=== PATIENT | male | born 1960 | race Caucasian/White ===

== ENCOUNTER 2019-08-02 20:25 | Inpatient (IN) | payer MEDICAID ==
[~2019-08-02] VITALS: Ht 180.3 cm; Wt 68.3 kg
--- NOTE | 2019-08-02 20:36 | NUR ---
PT BROUGHT TO ED FROM [facility] BY [facility] WITH INCREASED ALOC AND PAIN. PER MEDICS, PT IS USUALLY AOX3 AND IS IN THE CARE FACILITY DUE TO A R HIP FX. CARE FACILITY STAFF STATED THAT PT HAD A TEMP OF 100.4 AND WAS MORE ALTERED THAN USUAL AND SO THEY WANTED PT TRANSFERRED TO HOSPITAL. PT CURRENTLY AOX1, PT KNOWS NAME AND BUT DOES NOT KNOW HIS LOCATION, MONTH AND YEAR, OR US PRESIDENT. 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 PT AFEBRILE AT THIS TIME. PER MEDICS BLOOD GLUCOSE 100, VITALS STABLE. PT PLACED ON FULL CM IN VIEW OF NURSE'S STATION.
[2019-08-02 21:20] LABS: PLATELET COUNT 465 x10^3mcL (130-400); RED CELL DISTRIBUTION WIDTH 15.1 % (11.5-14.5)
[2019-08-02 21:29] LABS: CALCIUM 8.2 mg/dL (8.5-10.1); CARBON DIOXIDE 27.1 mmol/L (21-32); CHLORIDE SERUM 95 mmol/L (98-107); CREATININE SERUM 0.7 mg/dL (0.7-1.3); GFR1 > 60 mL/min; GLUCOSE SERUM 98 mg/dL (74-106); POTASSIUM SERUM 3.9 mmol/L (3.5-5.1); SODIUM SERUM 136 mmol/L (136-145)
[2019-08-02 21:34] LABS: ALKALINE PHOSPHATASE 269 U/L (46-116); ALT/SGPT 33 U/L (16-63); AST/SGOT 38 U/L (15-37); BAND NEUTROPHIL 4 % (0-10); BILIRUBIN TOTAL 0.55 mg/dL (0.20-1.00); METAMYELOCTE 3 % (0-2); MONOCYTE 4 % (0-7); SEGMENTED NEUTROPHILS 82 % (37-75); TOTAL PROTEIN, SERUM 6.4 g/dL (6.4-8.2)
[2019-08-02 21:35] LABS: ALBUMIN 1.7 g/dL (3.4-5.0)
[2019-08-02 21:36] LABS: PLATELET MORPHOLOGY FEW LARGE PLATELET; rbc morphology (normal/abnorm) ABNORMAL (NORMAL)
[2019-08-02] MEDS ORDERED: NORCO1 TA2 PO (23:50)
[2019-08-02 23:52] LABS: microscopic required? NO
[2019-08-02 23:58] LABS: urine erythrocyte NEGATIVE (NEGATIVE)
[2019-08-03 00:07] LABS: MAGNESIUM 1.9 mg/dL (1.8-2.4); PHOSPHOROUS 3.3 mg/dL (2.5-4.9)
[2019-08-03 00:09] LABS: CHOLESTEROL/HDL RATIO 2.9
--- NOTE | 2019-08-03 00:10 | NUR ---
RECEIVED PT FROM ED VIA [facility], CAME IN DUE TO INCREASED CONFUSION. PT ABLE TO STATE NAME, CONFUSED, ABLE TO FOLLOW SIMPLE COMMANDS, PUPILS ARE BRISK AND REACTIVE TO LIGHT. NO FACIAL DROOP NOTED. NO SOB, LUNG SOUNDS CTA, O2 SAT-96%, RA. DENIES CHEST PAIN/PRESSURE. DENIES ABDOMINAL DISCOMFORT. C/O 10/10 LOWER BACK AND HIP PAIN WORSE ON MOVEMENT. W/ RIGHT FOOT DRY SCABS, BILERAL HEELS DRY SKIN, AND SCABS W/ BLANCHABLE ERYTHEMA ON THE SACRAL-COCCYGEAL AREA AND LEFT BUTTOCK, MANAGER CODING. W/ KAZAKH 16 BAZAN CATHETER DRAINING W/ YELLOW COLORED URINE. IV SITE PATENT AND INTACT. SIDE RAILS UPX2. CALL LIGHT ON REACH. PRIMARY NURSE PEDRO AT BEDSIDE FOR CONTINUITY OF CARE
[2019-08-03 00:15] LABS: T3 TOTAL 0.92 ng/mL
[2019-08-03 00:17] LABS: FREE T4 1.63 ng/dL (0.76-1.46); FREE THYROXINE INDEX 4.1 ug/dL (1.4-4.5); T4(THYROXINE) 11.4 ug/dL (4.7-13.3)
[2019-08-03 00:27] LABS: AMPHETAMINE QUAL UR NONE DETECTED (See below)
[2019-08-03 00:30] VITALS: BP 112/70
[2019-08-03 00:46] VITALS: Ht 180.3 cm; Wt 68.3 kg
--- NOTE | 2019-08-03 02:00 | NUR ---
PT RESTING. NO SIGNS OF DISTRESS. BREATHING EVEN AND UNLABORED. IV PATENT, INFUSING WELL. CALL BUTTON WITHIN REACH. SAFETY PRECAUTIONS IN PLACE. WILL CONTINUE TO MONITOR.
[2019-08-03] MEDS ORDERED: VITAMIN C500 M6 PO (02:22)
[2019-08-03] MEDS ORDERED: NEU300 PO (02:23)
[2019-08-03] MEDS ORDERED: HYDRALAZINE HCL25 MG PO (02:24)
[2019-08-03] MEDS ORDERED: NITROGLYCERIN0.4 MG SL (02:25)
[2019-08-03] MEDS ORDERED: NOR10 PO (02:26)
[2019-08-03] MEDS ORDERED: COR6 PO (02:26)
[2019-08-03] MEDS ORDERED: ZINC SULFATE PO (02:27)
[2019-08-03] MEDS ORDERED: MULTI-VITAMINS1 TAB PO (02:28)
[2019-08-03 05:15] VITALS: BP 134/82
--- NOTE | 2019-08-03 06:08 | NUR ---
PT SLEPT ON AND OFF. NO SIGNS OF DISTRESS. IV PATENT, INFUSING WELL. DENIES ANY PAIN. BREATHING EVEN AND UNLABORED ON RA. NO SOB NOTED. PT F/C IN PLACE DRAINING YELLOW URINE. PT DID NOT HAVE A BM. TURN AND REPSOTIONED NEEDED. PT ABLE TO MOVE IN BED WITH MINIMAL ASSIST. PT CONTINUE TO BE CONFUSED AT TIMES. CALL BUTTON WITHIN REACH. SAFETY PRECAUTIONS IN PLACE. WILL CONTINUE TO MONITOR AND ENDORSECARE TO DAY SHIFT RN.
[2019-08-03 06:45] LABS: CALCIUM 8.3 mg/dL (8.5-10.1); CARBON DIOXIDE 25.5 mmol/L (21-32); CHLORIDE SERUM 104 mmol/L (98-107); CREATININE SERUM 0.6 mg/dL (0.7-1.3); GFR1 > 60 mL/min; GLUCOSE SERUM 97 mg/dL (74-106); POTASSIUM SERUM 3.9 mmol/L (3.5-5.1); SODIUM SERUM 139 mmol/L (136-145)
[2019-08-03 07:30] LABS: PLATELET COUNT 467 x10^3mcL (130-400); RED CELL DISTRIBUTION WIDTH 15.2 % (11.5-14.5)
--- NOTE | 2019-08-03 07:30 | NUR ---
PT IS AAOX2 TO PERSON AND PLACE. RESP EVEN, SHALLOW AND UNLABORED. LUNG SOUNDS DIMINISHED BILATERALLY. ON R/A. NO COUGH OR SOB NOTED. NORMAL S1S2 NOTED. ABODMEN SOFT, NONTENDER, NONDISTENDED. BOWEL SOUNDS ACTIVE X4 QUADS. DENIES N/V/D AND CONSTIPATION. PT HAS R FOOT SCABS SCATTERED AND ANNABELLE. NO S/S OF INFECTION NOTED. PT HAS SACRAL SCAR BUT NO REDNESS OR EXCORIATION NOTED TO AREA. PT PULLED IV CATH OUT INTACT. COVERED SITE WITH GAUZE AND BANDAID. NO S/S OF INFECTION OR INFILTRATION TO AREA NOTED. NEW IV CATH 2 GAUGE STARTED TO LFA, AREA COVERERED WITH CDI OCCLUSIVE DRESSING, IVF INITIATED. PT DENIES PAIN AT THIS TIME. CALL LIGHT WITHIN REACH. BED IN LOWEST POSITION. BED ALARM ON. FALL PROTOCOL MAINTAINED.
--- NOTE | 2019-08-03 07:32 | NUR ---
PT IN NO SIGNS OF DISTRESS. ENDORSED CARE TO DAY SHIFT RN, ALL QUESTIONS ADDRESSED.
--- NOTE | 2019-08-03 07:42 | NUR ---
LAB REPORTED PT'S WBC= 20.4, PT'S TEMP =102.[address] ANDERSON AWAITING CALL BACK. COOLING MEASURES IMPLEMENTED. PT HAS PULLED IV CATH. SITE WNL. COVERED WITH CDI DRESSING. WILL ATTEMPT NEW IV START AT THIS TIME. CALL LIGHT WITHIN REACH.
[2019-08-03 07:45] VITALS: BP 108/48
--- NOTE | 2019-08-03 08:37 | NUR ---
TYLENOL 650MG PO GIVEN CRUSHED WITH APPLES SAUCE FOR TEMP OF 102.6. COOLING MEASURES IN PLACE. ROUTINE MEDS GIVEN AND TOLERATED WELL. CALL LIGHT WITHIN REACH.
--- NOTE | 2019-08-03 08:40 | NUR ---
PAGED DR. ANDERSON A SECOND TIME TO REPORT INCREASED WBC AND TEMP. AWAITING CALL BACK.
--- NOTE | 2019-08-03 09:20 | NUR ---
DR. MCCLURE AND MEDICAL TEAM MET WITH PT AND DISCUSSED POC. PT IS RECEIVE ABT AND LABS WILL BE EVALUATED ON 08/04/19. PT AGREED WITH POC.
--- NOTE | 2019-08-03 09:21 | NUR ---
PT TAKEN BY BED FOR C/T OF HEAD AT THIS TIME. IV CATH N/S LOCKED.
--- NOTE | 2019-08-03 09:26 | NUR ---
PT BACK FROM CT OF HEAD. IV FLUIDS INTITIATED. RESP EVEN AND UNLABORED. PT NO DISTRESS NOTED. CALL LIGHT WITHIN REACH.
--- NOTE | 2019-08-03 09:30 | NUR ---
TEMP 99.8F. COOLING MEASURES IN PLACE. RESP EVEN AND UNLABORED. WILL CONTINUE TO MONITOR. CALL LIGHT WITHIN REACH.
--- NOTE | 2019-08-03 09:32 | NUR ---
REPORTED TO DR. ANDERSON PT'S WBC IS 20.4 AND TEMP IS 102.6F. NO NEW ORDERS AT THIS TIME.
[2019-08-03 10:57] LABS: BAND NEUTROPHIL 3 % (0-10); BASOPHIL 0 % (0-2); METAMYELOCTE 2 % (0-2); MONOCYTE 4 % (0-7); SEGMENTED NEUTROPHILS 83 % (37-75)
[2019-08-03 10:58] LABS: rbc morphology (normal/abnorm) ABNORMAL (NORMAL)
--- NOTE | 2019-08-03 11:15 | NUR ---
P.T. NOTES RECEIVED P.T. EVAL ORDER; HOLD P.T. EVAL AT THIS TIME, TLGO=441.6F, WBC= 20.4; RN AWARE; CALL ROBLES, PHONE, TABLE IN REACH, BED ALARM ON; FOLLOW UP NEXT VISIT WHEN ABLE.
--- NOTE | 2019-08-03 11:55 | NUR ---
TORADOL IVP GIVEN FOR BACK PAIN 06/05. EXTRA FLUIDS GIVEN. PT IN NORMTHERMIC AT THIS TIME. TEMP 99.8F. RESP EVEN AND UNLABORED. NO OTHER DISTRESS NOTED. CALL LIGHT WITHIN REACH.
--- NOTE | 2019-08-03 14:30 | NUR ---
DUE MEDS GIVEN AND TOLERATED WELL. PT DENIES PAIN AT THIS TIME. RESP EVEN AND UNLABORED. NO DISTRESS NOTED. CALL LIGTH WITHIN REACH.
[2019-08-03 16:15] VITALS: BP 124/69
--- NOTE | 2019-08-03 17:03 | NUR ---
PT IS SLEEPING BUT EASILY AROUSABLE. RESP EVEN AND UNLABORED. NO DISTRESS NOTED. CALL LIGHT WITHIN REACH.
--- NOTE | 2019-08-03 18:06 | NUR ---
TORADOL 15MG IVP GIVEN FOR BACK PAIN 05/06. DUE MEDICATION GIVEN CRUSHED WITH APPLE SAUCE. B/P 124/69, HR 85. RESP EVEN AND UNLABORED. NO OTHER DISTRESS NOTED. CALL LIGHT WITHIN REACH.
--- NOTE | 2019-08-03 18:17 | NUR ---
REPORTED TO DR. ANDERSON THAT S/T SALEEM HAS BEEN PERFORMED. SPEECH THERAPIST RECOMMENDS NECTAR THICK LIQUIDS AND PUREE DIET. DR. ANDERSON STATED SHE WILL UPDATE THE PT'S DIET ORDER.
--- NOTE | 2019-08-03 18:22 | NUR ---
PT WAS SEEN FOR DYSPHAGIA. PT WAS ABLE TOS AFELY SWALLOW PUREE DIET WITH NECTAR THICK LIQUID. PT HAD MILD THROAT CLEARING AND WET VOICE FOR THIN LIQUID. RECOMMENDATION PUREE DIET WITH NECTAR THICK LIQUID SMALL BITES AND SIPS ONLY.
--- NOTE | 2019-08-03 18:48 | NUR ---
PT IS AAOX2-3 TO PERSON, PLACE AND POSSIBLE EVENT. RESP EVEN AND UNLABORED. NO DISTRESS NOTED. PT RECEIVED DINNER, PUREE, NTL. IVF RUNNING TO LFA. SITE WNL. ON S/S OF INFECTION NOTED. PT DENIES PAIN AT THIS TIME. CALL LIGHT WITHIN REACH. BED IN LOWEST POSITION. WILL ENDORSE ALL CARE TO NOC RN.
--- NOTE | 2019-08-03 19:40 | NUR ---
RECEIVED PT FROM AM NURSE. PT AAOX3, FORGETFUL AT TIMES. ABLE TO MAKE NEEDS KNWON. NEEDS REORIENTATION DUE TO PULLING AT IV LINES. MED-RUBENS, DENIES CP/PRESSURE AT THIS TIME. PALPABLE PULSES TO ALL EXTREMETIES, NO EDEMA NOTED. LUNG SOUNDS CTA. BREATHING EVEN AND UNLABORED ON RA. NO ACUTE DISTRESS NOTED. ABD SOFT AND NONDISTENDED. ACTIVE BS X4 QUAD. DENIES N/V/D. BAZAN CATH IN PLACE DRAINING CLEAR YELLOW URINE TO GRAVITY. GENERALIZED WEAKNESS. BEDREST AT THIS TIME. DRY SCABS TO RIGHT FOOT ANNABELLE. DRY FEET. ERYTHEMA TO SCARAL AREA. IV TO LFA INFUSING 100ML/HR. SITE FREE FROM REDNESS AND SWELLING. BED AT LOWEST SETTING. SIDE RAILS X2 UP. CALL LIGHT WITHING REACH. WILL CONTINUE TO MONITOR.
[2019-08-03 20:20] VITALS: BP 112/74
--- NOTE | 2019-08-04 00:18 | NUR ---
PT C/O 5/10 PAIN TO LEFT HIP. MEDICATED WITH PRN TORADOL PER JAN. PT STATES RELIEF OF PAIN, RATES PAIN /10 AT THIS TIME. PT REQUESTING FOOD, STATES HE IS HUNGRY. PUDDING AND JELLO PROVIDED. PT TOLERATED WELL. NO ACUTE DISTRESS NOTED. BREATHING EVEN AND UNLABORED ON RA. BED AT LOWEST SETTING. SIDE RAILS X2 UP. CALL LIGHT WITHING REACH. WILL CONTINUE TO MONITOR.
[2019-08-04 05:10] VITALS: BP 123/69
--- NOTE | 2019-08-04 06:20 | NUR ---
PT SLEPT AT INTERVALS THROGHOUT THE NIGHT. BREATHING EVEN AND UNLABORED ON RA. NO ACUTE DISTRESS NOTED. ALL NEEDS ASSESSED AND ATTENDED TO .NO SIGNIFICANT CHANGE DURING SHIFT. BAZAN CATH CARE RENDERED, PT TOLERATED WELL. BED AT LOWEST SETTING. SIDE RAILS X2 UP. CALL LIGHT WITHING REACH. WILL ENDORSE CARE TO AM NURSE.
[2019-08-04 06:42] LABS: CALCIUM 7.8 mg/dL (8.5-10.1); CARBON DIOXIDE 24.8 mmol/L (21-32); CHLORIDE SERUM 105 mmol/L (98-107); CREATININE SERUM 0.8 mg/dL (0.7-1.3); GFR1 > 60 mL/min; GLUCOSE SERUM 136 mg/dL (74-106); MAGNESIUM 1.8 mg/dL (1.8-2.4); PHOSPHOROUS 2.8 mg/dL (2.5-4.9); POTASSIUM SERUM 3.8 mmol/L (3.5-5.1); SODIUM SERUM 140 mmol/L (136-145)
[2019-08-04 07:05] LABS: BASOPHIL % 0.1 % (0-2)
--- NOTE | 2019-08-04 07:10 | NUR ---
PT FOUND TO HAVE DIARRHEA AND NAUSEA WITH VOMITING. WOUND DRESSINGS HAVE BEEN SOAKED WITH DIARRHEA. HOUSEKEEPING CALLED TO CLEAN FLOORS. ALL DRESSINGS, BEDDING, AND PT'S GOWN REMOVED. SACRAL OPTIFOAM REMOVED AREA CLEANSED WITH WOUND HOG BUYER, PATTED DRY, HYDRAGUARD APPLIED AND OPTIFOAM PLACED. DRESSING REMOVED FOR LLEX3, RLEX2, AND L HIP. SKIN CLEANED WITH NS AND WOUND HOG BUYER, PATTED DRY, 4X4 GAUZE AND ISLAND DRESSING PLACE. PT TOLERATED PROCEDURE WELL. PT IS WEAK AND SLOW TO SPEAK. PT HAS REFUSED IVF. DR. ANDERSON MADE AWARE. AIR MATRESS PLACED FOR SKIN MAINTENANCE. NORMAL S1S2 NOTED. LUNG SOUNDS DIMINISHED BILATERALLY. ABDOMEN SOFT, FLAT, HYPERACTIVE, WITH REPORTS OF DIARRHEA X 5 EPISODES DURING NOC. SHIFT. IV CATH WITH FLUIDS N/S LOCKED DUE TO PT'S REFUSAL TO RECEIVE FLUIDS. SITE WNL. COVERED WITH OCCLUSIVE, PATENT. FALL PROTOCOL FOLLOWED. BED IN LOW POSTION. CALL LIGHT WITHIN REACH. CONTACT PRECAUTIONS IN MAINTAINED. CDI. CALL LIGHT WITHIN REACH.
[2019-08-04 07:15] LABS: PLATELET COUNT 419 x10^3mcL (130-400); RED CELL DISTRIBUTION WIDTH 15.5 % (11.5-14.5)
--- NOTE | 2019-08-04 07:25 | NUR ---
PT IS AAOX3-4 CONFUSED AND FORGETFUL AT TIMES. ABLE TO FOLLOW COMMANDS, MAKE NEEDS KNOWN, VERBALIZED NEEDS. DENIES H/A AND DIZZINESS. NORMAL S1S2 NOTED. LUNG SOUNDS DIMINISHED BILATERALLY. ON R/A. ABDOMEN SOFT, NONTENDER, NONDISTENDED. BOWEL SOUNDS ACTIVE X4 QUADS. TOLERATING PUREE, NTL DIET. DENIES N/V/D AND CONSTIPATION. BAZAN CATH IN PLACE DRAINING YELLOW URINE TO GRAVITY. STAT LOCK TO RIGHT LEG. SKIN CDI. NO EDEMA NOTED. PERIPHERAL PULSES PALPABLE. IVF RUNNING TO LFA, PATENT, SITE WNL. NO S/S OF INFECTION OR INFILTRATION. PT DENIES PAIN AT THIS TIME. CALL LIGHT WITHIN REACH. BED IN LOWEST POSITION, BED ALARM ON. FALL PROTOCOL MAINTAINED.
--- NOTE | 2019-08-04 08:25 | NUR ---
TORADOL 15MG IVP GIVEN FOR BACK PAIN 06/05. PT REPOSITIONED FOR COMFORT. B/P 119/68, HR 81. NORVASC AND HYDRALAZINE HELD. DR. ANDERSON MADE AWARE. DR. MCCLURE AND MEDICAL TEAM MET WITH PT. PT HAS C/O CHRONIC BACK PAIN. DR. MCCLURE STATED A CT WILL BE TAKEN. PT AGREED WITH POC. CALL LIGHT WITHIN REACH. PT EDUCATED HE IS TO REMAIN NPO UNTIL CT WITH CONTRAST TAKEN. PT VERBALIZED UNDERSTANDING.
--- NOTE | 2019-08-04 09:07 | NUR ---
Nutrition Note: Nursing trigger received for "admitted with potential risk diagnosis" on 08/04/19. Pt. admitted with right lower lobe PNA per H and P documentations, and does not meet high risk nutritional criteria at this time. Pt. will be assessed as moderate risk, with initial assessment due 08/07-08/09/19.
[2019-08-04 09:27] VITALS: BP 119/68
--- NOTE | 2019-08-04 11:22 | NUR ---
PT IS SLEEPING BUT EASILY AROUSABLE TO VERBAL STIMULI. RESP EVEN AND UNLABORED. NO DISTRESS NOTED. CALL LIGHT WITHIN REACH.
--- NOTE | 2019-08-04 11:40 | NUR ---
PT TAKEN TO CT SCAN OF AB/PELVIS. IV CATH N/S LOCKED.
--- NOTE | 2019-08-04 12:10 | NUR ---
PT BACK FROM CT SCAN. IV ABT STARTED. RESP EVEN AND UNLABORED. BED IN LOW POSITION. CALL LIGHT WITHIN REACH.
--- NOTE | 2019-08-04 12:16 | NUR ---
PT STATES HE HAS BACK PAIN 06/05. NORCO WILL BE GIVEN ONCE VERIFIED. DUE MEDICATION GIVEN AND TOLERATED WELL. RESP EVEN AND UNLABORED. CALL LIGHT WITHIN REACH.
--- NOTE | 2019-08-04 12:27 | NUR ---
PT MAINTAINED 2 [address]PO STATUS FOR CT OF AB/PELVIS WITH CONTRAST. PT TAKEN N/S LOCKED AND TAKEN DOWN FOR C/T AB/PELVIS AT THIS TIME.
--- NOTE | 2019-08-04 13:44 | NUR ---
NORCO 7.5/325 PO GIVEN FOR THROBBING BACK PAIN 06/05. PT ASSISTED WITH BED BATH AND GIVEN BAZAN/PERICARE, GOWN AND BEDDING CHANGE. DUE MEDS GIVEN. CALL LIGHT WITHIN REACH. BED IN LOWEST POSITION.
--- NOTE | 2019-08-04 14:25 | NUR ---
RECEIVED CALL FROM DR. HE TO REPORT THAT PT'S C/T SCAN HAS BEEN READ AND OSTEOMYLITIS AND AN EXTENSIVE ABCESS HAS BEEN NOTED. REPORTED FINDINGS TO DR. ANDERSON. THOMAS AT THIS TIME.
--- NOTE | 2019-08-04 14:45 | NUR ---
PT HAS HAD MULTIPLE DIARRHEA EPISODES AND SOILED ALL DRESSINGS. DRESSINGS TO SACRAL AREA, LLE X3, RLEX2 AND L HIP REMOVED, AND ODOFOAM REMOVED. AREAS CLEANSED WITH WOUND WHIPPER, PATTED DRY, AND NEW ODOFOAM PLACED, COVERED WITH 4X4 GAUZED AND CDI ISLAND DRESSINGS. PT TOLERATED PROCEDURE WELL. PT NOTED WITH ERYTHEMA TO R AND L SHOULDERS. AREA COVERED WITH ISLAND DRESSING TO SKIN MAINTENANCE. PICTURES TAKEN AND DR. ANDERSON MADE AWARE OF FINDINGS. CALL LIGHT WITHIN REACH. BED IN LOW POSITION. CONTACT PRECAUTIONS MAINTAINED.
--- NOTE | 2019-08-04 16:25 | NUR ---
TORADOL 15 MG IVP GIVEN FOR SHARP, ACHING BACK PAIN 06/05. PT REPOSITIONED FOR COMFORT. ONE TIME DOSE OF COLACE GIVEN. HYDRALAZINE AND MORPHINE HELD DUE TO LOW B/P 110/55 (65). RESP EVEN AND UNLABORED. CALL LIGHT WITHIN REACH.
[2019-08-04 16:34] VITALS: BP 100/55
--- NOTE | 2019-08-04 18:25 | NUR ---
NORCO 7.5MG PO GIVEN FOR BACK PAIN 07/06. RESP EVEN AND UNLABORED. PT REPOSITIONED FOR COMFORT. CALL LIGHT WITHIN REACH.
--- NOTE | 2019-08-04 18:29 | NUR ---
MEDICAL RECORDS REQUEST HAS BEEN SIGNED BY PT AND FAXED TO [facility] AND [facility].
--- NOTE | 2019-08-04 18:36 | NUR ---
DR. ANDERSON MET WITH PT AND EXPLAINED CT RESULTS, STATED SHE WILL ADD MORPHINE FOR PAIN AND ADMINISTER IVF. PT AGREED WITH POC. PT IS AAOX4 AT THIS TIME. RESP EVEN AND UNLABORED. PATIENT STATES HE HAS BACK PAIN. MEDICATION WILL BE GIVEN. CALL LIGHT WITHIN REACH. BED IN LOWEST POSITION. ALL CARE WILL BE ENDORSED TO NOC SHIFT RN.
--- NOTE | 2019-08-04 19:35 | NUR ---
RECEIVED PT FROM DAY SHIFT RN. PT AAOX4. DENIES RUFF/DIZZINESS. MED SURG PT DENIES CHEST PAIN/PRESSURE. BREATHING EVEN AND UNLABORED, ON RA. NO SOB NOTED. ACTIVE BOWEL SOUNDS, DENIES ABD PAIN/N/V. PT REPORTS HAVING BACK PAIN. IV LFA PATENT, INFUSING WELL. RIGHT FOOT DRY SCABS, CHAO HEELS DRY SKIN. ERYTEHEMA TO BUTTOCKS/SACRAL REGION. F/C IN PLACE, DRAINING YELLOW URINE. NO SIGNS OF ACUTE DISTRESS NOTED. CALL BUTTON WITHIN REACH. SAFETY PRECAUTIONS IN PLACE. WILL CONTINUE TO MONITOR.
--- NOTE | 2019-08-04 19:40 | NUR ---
SPOKE TO ALISHA-DOSIMETRIST AT [facility]-REGARDING NEED FOR A BED FOR HLOC FOR NEUROSURGICAL INTERVENTION,GAVE ME [facility] #[phone] TO GET AUTHORIZATION SINCE PATIENT IS SELF PAY. CALLED ADILIA MOLINA AND HE WILL CALL US BACK. RELAY THIS INFOR TO ROBERT.
--- NOTE | 2019-08-04 20:29 | NUR ---
SPOKE TO DR BLANCAS NEW ORDERS RECEIVED AND CARRIED OUT.
[2019-08-04 20:30] VITALS: BP 106/65
--- NOTE | 2019-08-04 20:53 | NUR ---
PT REPORTED BACK PAIN 09/05. MEDICATED PER EMAR. CALL BUTTON WITHIN REACH. SAFETY PRECAUTIONS IN PLACE. WILL CONTINUE TO MONITOR.
--- NOTE | 2019-08-05 01:09 | NUR ---
PT REPORTED BACK PAIN 09/05. MEDICATED PER EMAR. CALL BUTTON WITHIN REACH. SAFETY PRECAUTIONS IN PLACE. WILL CONTINUE TO MONITOR.
[2019-08-05 01:21] VITALS: BP 106/65
--- NOTE | 2019-08-05 01:28 | NUR ---
RECEIVED A CALL FROM [facility] NURSE NOTIFY TELE BED AVVAILABLE WILL CONFIRM THE DETAILS AND CALL BACK WITH ALL INFORMATION TO TRANSFER PT. DR CARCAMO MADE AWARE.
--- NOTE | 2019-08-05 03:02 | NUR ---
PT AWAKE. NO SIGNS OF DISTRESS. CALL BUTTON WITHIN REACH. SAFETY PRECAUTIONS IN PLACE. WILL CONTINUE TO MONITOR.
--- NOTE | 2019-08-05 04:32 | NUR ---
PT HAS A TEMP OF 101.1 ORAL. COOLING MEASURES APPLIED. MEDICATED PER EMAR. WILL MONITOR.
[2019-08-05 05:00] VITALS: BP 108/65
--- NOTE | 2019-08-05 05:25 | NUR ---
PT REPORTED BACK PAIN 09/05. MEDICATED PER EMAR. CALL BUTTON WITHIN REACH. SAFETY PRECAUTIONS IN PLACE. WILL MONITOR.
--- NOTE | 2019-08-05 05:55 | NUR ---
PT REFUSED WOUND PHOTOS TO BE TAKEN.
[2019-08-05 06:37] LABS: BASOPHIL % 0.5 % (0-2)
--- NOTE | 2019-08-05 06:46 | NUR ---
PT SLEPT VERY POORLY. BREATHING EVEN AND UNLABORED ON RA. NO SIGNS OF DISTRESS. PT REPORTED TO HAVE BACK PAIN THROUGHOUT THE NIGHT MEDICATED PER EMAR. PT NONCOMPLIANT WITH NURSING CARE. IV PATENT, INFUSING WELL. NO SIGNS OF DISTRESS NOTED. CALL BUTTON WITHIN REACH. SAFETY PRECAUTIONS IN PLACE. WILL CONTINUE TO MONITOR AND ENDORSE CARE TO DAY SHIFT RN.
--- NOTE | 2019-08-05 06:49 | NUR ---
At [address] a call from [place] Card[place] [facility] [place] took the call. Awaiting a call back.
[2019-08-05 06:55] LABS: PLATELET COUNT 425 x10^3mcL (130-400); RED CELL DISTRIBUTION WIDTH 15.4 % (11.5-14.5)
[2019-08-05 06:56] LABS: CALCIUM 8.1 mg/dL (8.5-10.1); CARBON DIOXIDE 26.4 mmol/L (21-32); CHLORIDE SERUM 104 mmol/L (98-107); CREATININE SERUM 0.8 mg/dL (0.7-1.3); GFR1 > 60 mL/min; GLUCOSE SERUM 103 mg/dL (74-106); MAGNESIUM 1.9 mg/dL (1.8-2.4); POTASSIUM SERUM 4.2 mmol/L (3.5-5.1); SODIUM SERUM 138 mmol/L (136-145)
--- NOTE | 2019-08-05 07:37 | NUR ---
PT IN NO SIGNS OF DISTRESS. ENDORSED CARE TO DAY SHIFT RN, ALL QUESTIONS ADDRESSED.
[2019-08-05 08:30] VITALS: BP 98/46
--- NOTE | 2019-08-05 10:18 | NUR ---
PT IS SLEEPING THIS TIME. STABLE. INFORMED ABOUT PT BP 98/61 AND SHE SAID TO HOLD BP MED. ALSO INFORMED HER PT IS REFUSING TO TAKE PICTURES OF HIS SKIN ALTERATIONS, PT IS VERY UNCOOPERATIVE, YELLING AND SCREAMING SOME TIMES. ASK FOR FOOD ALL THE TIME AND VERBALLY ABUSIVE, USE FOUL LANGUAGES.
--- NOTE | 2019-08-05 12:09 | NUR ---
PT IS YELLING AND SCREAMING. HE SAID HE HAS BACK PAIN,10/. TORADOL IV GIVEN 30MG ORDERED. WILL MONITOR.
--- NOTE | 2019-08-05 12:50 | NUR ---
PT IS SLEEPING THIS TIME. NO SIGNS OF PAIN. STABLE.
--- NOTE | 2019-08-05 15:18 | NUR ---
PHYSICAL THERAPY NOTE ATTEMPTED TO ASSESS PATIENT ORDERED. PATIENT REFUSED AT THIS TIME 2/2 TO PAIN. ENRICO GIBSON AWARE.
--- NOTE | 2019-08-05 16:06 | NUR ---
Discount pharmacy card and list to low cost medical clinics given to patient by Deborah.
--- NOTE | 2019-08-05 16:36 | NUR ---
PT IS SLEEPING THIS TIME. DENIES ANY PAIN. STABLE.
[2019-08-05 17:13] VITALS: BP 119/72
--- NOTE | 2019-08-05 19:05 | NUR ---
PT RESTING IN BED COMFORTABLY AND SLEEPING. STABLE. NO SIGNS OF ANY PAIN. GAVE REPORT TO RN INFORMATICS NURSE.
--- NOTE | 2019-08-05 19:10 | NUR ---
RECEIVED PT IN BED ASLEEP BUT EASILY AROUSABLE. NO ACUTE RESPIRATORY DISTRESS NOTED. NO INDICATION OF PAIN. IV SITE PATENT AND INTACT. HOB ELEVATED. SIDERAILS UP. BED IN LOWEST POSITION,CALL LIGHT WITHIN REACH.
--- NOTE | 2019-08-05 20:14 | NUR ---
PT C/O BACK PAIN 09/05. MEDICATED MORPHINE 1MG IV ORDERED. WILL CONTINUE TO MONITOR.
[2019-08-05 20:22] VITALS: BP 126/72
--- NOTE | 2019-08-05 23:14 | NUR ---
PT C/O BACK PAIN 09/05. MEDICATED TORADOL 30MG IV ORDERED. WILL CONTINUE TO MONITOR.
--- NOTE | 2019-08-06 05:13 | NUR ---
PT APPEARS TO BE SLEEPING. NO DISTRESS NOTED. NO INDICATION OF PAIN. F/C CARE DONE.BED IN LOWEST POSITION,CALL LIGHT WITHIN REACH. WILL CONTINUE TO MONITOR.
[2019-08-06 06:21] VITALS: BP 116/61
[2019-08-06 06:27] LABS: BASOPHIL % 0.4 % (0-2)
[2019-08-06 06:49] LABS: CALCIUM 8.4 mg/dL (8.5-10.1); CARBON DIOXIDE 26.5 mmol/L (21-32); CHLORIDE SERUM 105 mmol/L (98-107); CREATININE SERUM 0.7 mg/dL (0.7-1.3); GFR1 > 60 mL/min; GLUCOSE SERUM 89 mg/dL (74-106); PHOSPHOROUS 3.4 mg/dL (2.5-4.9); SODIUM SERUM 140 mmol/L (136-145)
[2019-08-06 07:00] LABS: RED CELL DISTRIBUTION WIDTH 15.4 % (11.5-14.5)
--- NOTE | 2019-08-06 07:20 | NUR ---
CARE ENDORSED TO DAY NURSE ENRICO.
--- NOTE | 2019-08-06 07:45 | NUR ---
PT RESTING IN BED. ASSESSED AND DOCUMENTED. STATED BACK PAIN AND RT SIDE ABD PAIN,07/06. PT RECEIVED MORPHIN AT 0445, INFORMED PT THAT AND OFFERED TORADOL IV 30MG BUT PT REFUSED TORADOL AND SAID HE WILL WAIT FOR MORPHIN IV FOR DUE TIME. SAFTEY PRECAUTIONS ARE IN PLACE. WILL MONITOR.
--- NOTE | 2019-08-06 08:41 | NUR ---
PT IS YELLING FOR PAIN MEDICINE. MEDICATED PT WITH MORPHIN IV 1MG ORDERED.
[2019-08-06 08:54] LABS: PLATELET COUNT 543 x10^3mcL (130-400)
--- NOTE | 2019-08-06 09:11 | NUR ---
PT IS SLEEPING THIS TIME. STABLE.
[2019-08-06 10:26] VITALS: BP 125/75
--- NOTE | 2019-08-06 11:53 | NUR ---
PT IS YELLING AND SCREAMING. USING FOUL LANGAUGES. HE SAID HE HAS BACK PAIN,09/05. OFFERED TORADOL BUT PT REFUSED INITIALLY BUT HE CHANGE HIS MIND AND TOOK TORADOL IV 30MG. WILL MONITOR.
--- NOTE | 2019-08-06 12:13 | NUR ---
PT IS SLEEPING THIS TIME. STABLE.
--- NOTE | 2019-08-06 13:33 | NUR ---
PT IS RESTING IN BED COMFORTABLY, SLEEPING THIS TIME.
--- NOTE | 2019-08-06 16:00 | NUR ---
PT HAD 1 BM ALREADY, INFORMED SHE SAID NO NEED OF DULCOLAX SUPP AND ALSO PT REFUSED.
[2019-08-06 17:19] VITALS: BP 117/62
--- NOTE | 2019-08-06 17:40 | NUR ---
PT RESTING IN BED COMFORTABLY, SLEEPING. STABLE.
--- NOTE | 2019-08-06 19:15 | NUR ---
PT RESTING IN BED COMFORTABLY. DENIES ANY PAIN THIS TIME. STABLE. GAVE REPORT TO SALON SHAMPOO ASSISTANT NURSE.
--- NOTE | 2019-08-06 19:30 | NUR ---
RECIEVED PT RESTING IN BED STATING THEYRE IN "12/" PAIN, OFFERED PT PAIN MEDICATION PER ORDER BUT REFUSED PAIN MEDICATION BECAUSE HE STATED HE " ONLY WANTS MORPHINE" AND MORPHINE WAS JUST GIVEN 2 HOURS PRIOR, DR GANN, NO NEW ORDERS GIVEM ASSESSMENT PERFORMED AT THIS TIME, PT IS A/OX4 BUT HAS EPISODES OF BIZZARE STATEMENTS OF "POISON INSIDE OF HIM". PT DENIES CHEST PAIN OR SOB, BAZAN CATHETER IN PLACE DRAINING CLEAR YELLOW URINE, SAFETY PRECAUTIONS IN PLACE, WILL CONTINUE TO MONITOR
--- NOTE | 2019-08-06 20:08 | NUR ---
PT NOW REQUESTING NORCO FOR PAIN, PT TEMP ALSO 100.8, ADMINISTERED NORCO PER ORDER AND TYLENOL FOR TEMP PER ORDER, WILL CONTINUE TO MONITOR
--- NOTE | 2019-08-06 21:08 | NUR ---
TEMP REDUCED TO 100.2 IMPLEMENTED COOLING MEASURES IN ROOM
--- NOTE | 2019-08-06 21:10 | NUR ---
PT STILL REPORTS SEVERE PAIN 09/05, ADMINISTERED MORPHINE IV PRN PER ORDER WILL CONTINUE TO MONITOR
[2019-08-06 21:32] VITALS: BP 137/66
[2019-08-07] VITALS (7 sets, daily range): BP systolic 106–136; BP diastolic 65–83
--- NOTE | 2019-08-07 01:10 | NUR ---
PT REPORTS SEVERE BACK PAIN 10/10, ADMINISTERED MORPHINE IVP PER ORDER, WILL CONTINUE TO MONITOR
--- NOTE | 2019-08-07 04:33 | NUR ---
PT HAS 4,000 ML OF URINE SINCE START OF SHIFT DR GÓMEZ AND DR DÍAZED INFORMED. DR GÓMEZ SAID SHE WOULD PUT ORDER FOR THE FLUID RESTRICTION TRIAL.
--- NOTE | 2019-08-07 05:13 | NUR ---
PT COMPLAINED OF OFF AND ON SEVERE BACK PAIN THROUGH SHIFT, PT REFUSED SOME MEDICATIONS (SEE MAR) AND WAS RESISTIVE TO CARE, PT DENIED SOB THROUGH SHIFT, PT HAD EXCESIVE URINE OUTPUT OF OVER 4000 MLS AND WAS REPORTED TO DR GÓMEZ AND CARLOS ALBERTO. SAFETY PRECAUTIONS WERE MAINTAINED THROUGH EVENING, WILL CONTINUET O MONITOR AND ENDORSE CARE
[2019-08-07 06:14] LABS: BASOPHIL % 0.1 % (0-2)
[2019-08-07 06:26] LABS: CARBON DIOXIDE 26.3 mmol/L (21-32); CHLORIDE SERUM 104 mmol/L (98-107); CREATININE SERUM 0.6 mg/dL (0.7-1.3); GFR1 > 60 mL/min; GLUCOSE SERUM 91 mg/dL (74-106); MAGNESIUM 1.8 mg/dL (1.8-2.4); PHOSPHOROUS 2.9 mg/dL (2.5-4.9); POTASSIUM SERUM 3.8 mmol/L (3.5-5.1); SODIUM SERUM 138 mmol/L (136-145)
--- NOTE | 2019-08-07 07:15 | NUR ---
RECEIVED PT FROM NIGHT NURSE. PT IS LAYING DOWN IN BED WITH HOB UP. PT LOOKS TO BE IN NO ACUTE DISTRESS AT THIS TIME. PT IS ASKING WHEN BREAKFAST WILL BE HERE, INFORMED PT THAT BREAKFAST COMES AT 0730, PT VERBALIZED UNDERSTANDING. RESPIRATIONS EVEN AND UNLABORED ON ROOM AIR. IV SITE PATENT WITH NO SIGNS OF ERYTHEMA OR SWELLING WITH IV FLUIDS INFUSING. BED IN LOWEST POSITION, CALL LIGHT WITHIN REACH. WILL CONTINUE TO MONITOR.
[2019-08-07 07:50] LABS: RED CELL DISTRIBUTION WIDTH 15.4 % (11.5-14.5)
[2019-08-07 07:53] LABS: PLATELET COUNT 541 x10^3mcL (130-400)
--- NOTE | 2019-08-07 08:31 | NUR ---
PT ASKING FOR IV PAIN MEDICATION, MORPHINE AND TORODOL NOT DUE YET. OFFERED NORCO FOR PAIN TO PT AND PT SLAPPED HEAD AND YELLED NO THEN COVERED HEAD WITH PILLOW. ASKED PT IF HE WOULD LIKE NORCO OR OTHER DAILY MEDICATION, PT REFUSED TO ANSWER, ASKED PT IF HE WOUULD LIKE OTHER MEDICATION, PT CONTINUED TO IGNORE AND KEPT HEAD COVERED WITH PILLOW. INFORMED PT WHEN HE CAN GET PAIN MEDICATION AND STATED THAT HE CAN HAVE NORCO UNTIL MEDICATION IS DUE, PT CONTINUE TO IGNORE AND DID NOT RESPOND. WILL CONITNUE TO MONITOR.
--- NOTE | 2019-08-07 11:00 | NUR ---
PT IS LAYING DOWN IN BED RESTING WITH EYES CLOSED. PT LOOKS TO BE IN NO ACUTE DISTRESS AT THIS TIME. RESPRIATIONS EVEN AND UNLABORED. BED IN LOWEST POSITION, CALL LIGHT WITHIN REACH. WILL CONITNUE TO MONITOR.
--- NOTE | 2019-08-07 11:52 | NUR ---
P.T. NOTES PATIENT REFUSED TO BE SEEN BY P.T., STATES NOT FEELING WELL AND WOULD JUST LIKE TO GET SOME REST.
--- NOTE | 2019-08-07 15:05 | NUR ---
PHYSICAL THERAPY DAILY NOTES CO-SIGN All documentation done by the Body Design Checker for 08/07/19 has been reviewed. I agree with the documentation. Reviewed/Co-Signed by: India Bellamy PT Documentation Done by: JED NEWELL PTA
--- NOTE | 2019-08-07 16:56 | NUR ---
PT WAS SEEN FOR DYSPHAGIA. PT WAS ABLE TO SAFELY SWALLOW REGULAR DIET. HOWEVER, HE REFUSED TO SIT UP AND EAT. PT WANTS TO SLEEP AND EAT. PT IS AT RISK OF ASPIRATION FOR REGULAR DIET AT THIS POSITION. THERFORE IT IS RECOMMENDAED TO CONTINUE WITH PUREE DIET. RECOMMENDATION PUREE DIET WITH THIN LIQUID.
--- NOTE | 2019-08-07 18:30 | NUR ---
PT IS LAYING DOWN IN BED WITH HOB UP WATCHING TV. PT LOOKS TO BE IN NO ACUTE DISTRESS AT THIS TIME AND DENIES ANY PAIN. RESPRIATIONS EVEN AND UNLABORED ON ROOM AIR. IV SITE PATENT WITH NO SIGNS OF ERYTHEMA OR SWELLING WITH IV H/L. BAZAN PRESENT DRAINING CLEAR YELLOW URINE. BED IN LOWEST POSITON, CALL LIGHT WITHIN REACH. WILL ENDORSE TO ONCOMING SHIFT.
--- NOTE | 2019-08-07 19:10 | NUR ---
CARE ASSUMED FROM OUTGOING RN. PT RESTING COMFORTABLY IN BED. NO ACUTE DISTRESS NOTED. EVEN AND UNLABORED RESPIRATIONS ON RA. MEDSURG PT. IVL INTACT. BAZAN DRAINING YELLOW URINE TO GRAVITY. BED IN LOWEST POSITION. SIDE RAILS UPX2. CALL LIGHT WITHIN REACH. WILL CONTINUE TO MONITOR.
--- NOTE | 2019-08-07 23:00 | NUR ---
ADILIA FROM [facility] CALLED AND HE STATED THERE'S BED AVAIALBLE FOR PATIENT AND HE WANTS TO SPEAK TO PRIMARY RN,INFORMED PRIMARY RN TO CALL ADILIA,INFORMED THAT THERE'S BED FOR PATIENT.
[2019-08-07] MEDS ORDERED: VITAMIN C500 M6 PO (23:23)
--- NOTE | 2019-08-07 23:26 | NUR ---
RECEIVED PHONE CALL FROM [facility] WANTING TO SPEAK TO ATTENDING PHYSICIAN. TRANSFERRED PHONE TO DR. GÓMEZ. DR. GÓMEZ GAVE CONTACT INFO AND IS AWAITING PHONE CALL FROM [facility] POSSIBLE ACCEPTING PHYSICIAN.
--- NOTE | 2019-08-07 23:40 | NUR ---
RETURNED PHONE CALL TO [facility] TO GIVE REPORT. WAS TOLD BED AVAILABLE, BUT NO ACCEPTING PHYSICIAN AT THIS TIME. DR. GÓMEZ MADE AWARE, WILL BE INFORMED WHEN [facility] HAS AN ACCEPTING PHYSICIAN.
--- NOTE | 2019-08-08 00:04 | NUR ---
PT RESTING COMFORTABLY IN BED. NO ACUTE DISTRESS NOTED. EVEN AND UNLABORED RESPIRATIONS ON RA. IVL PATENT AND INTACT. BAZAN PATENT DRAINING YELLOW URINE VIA GRAVITY. BED IN LOWEST POSITION. SIDE RAILS UPX2. CALL LIGHT WITHIN REACH. WILL CONTINUE TO MONITOR.
--- NOTE | 2019-08-08 03:00 | NUR ---
DR. GÓMEZ INFORMED STAFF THAT [facility] WILL CALL BACK AROUND [phone] REGARDING IF PT WILL BE ACCEPTED.
[2019-08-08 05:07] VITALS: BP 135/91
[2019-08-08 05:59] LABS: BASOPHIL % 0.1 % (0-2)
--- NOTE | 2019-08-08 06:53 | NUR ---
PT RESTED COMFORTABLY IN INTERVALS THROUGHOUT THE SHIFT. NO ACUTE CHANGES NOTED. ALL NEEDS TENDED TO AND MET. ALL SCHEDULED MEDICATIONS GIVEN. C/O BACK PAIN MEDICATED PER EMAR. IV PATENT AND INTACT. BAZAN PATENT AND INTACT DRAINING 1250ML OF YELLOW URINE VIA GRAVITY. STILL AWAITING CALL BACK FROM [facility] REGARDING MEDSURG BED. BED IN LOWEST POSITION. SIDE RAILS UPX2. CALL LIGHT WITHIN REACH. WILL ENDORSE TO ONCOMING SHIFT.
[2019-08-08 07:04] LABS: PLATELET COUNT 588 x10^3mcL (130-400); RED CELL DISTRIBUTION WIDTH 15.3 % (11.5-14.5)
[2019-08-08 07:07] LABS: CALCIUM 8.1 mg/dL (8.5-10.1); CHLORIDE SERUM 104 mmol/L (98-107); CREATININE SERUM 0.6 mg/dL (0.7-1.3); GFR1 > 60 mL/min; GLUCOSE SERUM 102 mg/dL (74-106); MAGNESIUM 1.8 mg/dL (1.8-2.4); PHOSPHOROUS 2.7 mg/dL (2.5-4.9); SODIUM SERUM 138 mmol/L (136-145)
--- NOTE | 2019-08-08 09:15 | NUR ---
PATIENT RESTING IN BED NO ACUTE DISTRESS NOTED, INSTRUCTOR WITH STUDENT AT BEDSIDE ADMINISTERED MEDS TO PATIENT. STUDENT TRY TO APPLY HIBICLEN TO PATIENT, PATIENT REFUSED EVEN STUDENT EXPLAINED TO PATIENT. PATIENT WANT PAIN MED FOR BACK PAIN. CALL LIGHT WITHIN REACH.
--- NOTE | 2019-08-08 09:49 | NUR ---
PATIENT LAYING IN BED C/O 10/10 BACK PAIN, MORPHINE 2MG IVP GIVEN TO LFA, IV FLUSH WELL AND PATENT, CALL LIGHT IN REACH. NEEDS MET.
--- NOTE | 2019-08-08 09:51 | NUR ---
PAramT. NOTES PATIENT REFUSED TO BE SEEN BY P.T., STATES NOT FEELING WELL AND WANTS TO BE LEFT ALONE.
[2019-08-08 10:00] VITALS: BP 127/83
--- NOTE | 2019-08-08 12:00 | NUR ---
PATIENT AWAKEN, ASKING FOR PAIN MED, INFORM PATIENT IS NOT DUE YET, COLLECT URINE FROM BAZAN FOR UA ORDERED AND SEND TO LAB. NEEDS MET. CALL LIGHT WITHIN REACH.
--- NOTE | 2019-08-08 12:55 | NUR ---
PATIENT EATING AT THIS TIME, C/O 10/10 BACK PAIN. MORPHINE 2MG IVP AND NEURONTIN PO ADMINISTERED, CALL THE KITCHEN FOR CAKE PATIENT REQUEST, [facility]BMASTER [facility], WILL NOT ABLE TO GIVE PATIENT NO EXTRA FOODS ON PATIENT TRAY. NEEDS MET. CALL LIGHT WITHIN REACH.
[2019-08-08 13:33] LABS: microscopic required? NO
[2019-08-08 13:44] LABS: urine erythrocyte NEGATIVE (NEGATIVE)
--- NOTE | 2019-08-08 14:27 | NUR ---
PHYSICAL THERAPY DAILY NOTES CO-SIGN All documentation done by the Class A Truck Driver for 08/08/19 has been reviewed. I agree with the documentation. Reviewed/Co-Signed by: India Bellamy PT Documentation Done by: JED NEWELL PTA
--- NOTE | 2019-08-08 15:59 | NUR ---
PATIENT LAYING ON RT SIDE, STATE PAIN IS 10/10, MORPHINE 2MG IVP GIVEN TO LFA IV PATENT AND FLUSH WELL. NEEDS MET. CONT TO MONITOR.
[2019-08-08 16:42] VITALS: BP 133/76
--- NOTE | 2019-08-08 17:21 | NUR ---
PATIENT LAYING FLAT IN BED C/O BACK PAIN 09/05 ASKING FOR MORPHINE INFORM PATIENT NOT DUE YET 2HRS WAIT, OFFERED NORCO PATIENT FINALLY TAKE, NORCO 1 TAB PO AND NEURONTIN PO. 2 SODA GIVEN PER REQUEST. VANCOMYCIN IVPB INFUSING TO LFA IV PATENT. NEEDS MET. CALL LIGHT WITHIN REACH.
--- NOTE | 2019-08-08 19:11 | NUR ---
REPORT GAVE TO RAMBO GIBSON TO [facility]. PATIENT RESTING IN BED NO DISTRESS NOTED.
--- NOTE | 2019-08-08 19:23 | NUR ---
PATIENT GIVEN MORPHINE PER EMAR BY RESOURCE NURSE FOR REPORT OF 10/10 PAIN TO HIS BACK.
--- NOTE | 2019-08-08 19:30 | NUR ---
RECIEVED PATIETN AT START OF SHIFT A/O X4. COMPALINING OF 10/ TO LOWER BACK. NO SOB ON RA. MED-SURG. IV TO LFA IS SALINE LOCKED AND PATENT. BAZAN DRAINING CLEAR YELLOW URINE. BED LOCKED AND IN LOWEST POSITION. CALL LIGHT AND BEDSIDE TABLE WITHIN REACH.
[2019-08-08 20:15] VITALS: BP 137/78
--- NOTE | 2019-08-08 20:51 | NUR ---
PATIENT IS REPORTING NO RELIEF OF BACK PAIN. STILL 09/05. NORCO GIVEN PER EMAR AT THIS TIME.
--- NOTE | 2019-08-08 21:26 | NUR ---
STILL NO PAIN RELIEF. BACK PAIN 09/05. TORADOL GIVEN PER EMAR AT THIS TIME.
--- NOTE | 2019-08-08 22:39 | NUR ---
PATIENT IS REPORTING 10/10 BACK PAIN. MORPHINE ADMINISTERED PER EMAR. PATIENT ENCOURAGED TO REPOSITION. CALL LIGHT AND BEDSIDE TABLE WITHIN REACH.
--- NOTE | 2019-08-09 01:54 | NUR ---
PATIENT GIVEN MORPHINE PER EMAR FOR 10/10 BACK PAIN AT THIS TIME
--- NOTE | 2019-08-09 03:05 | NUR ---
PATIENT GIVEN NORCO PER EMAR FOR 10/10 BACK PAIN AT THIS TIME.
--- NOTE | 2019-08-09 05:01 | NUR ---
PATIENT GIVEN MORPHINE PER EMAR FOR REPORT OF 10/10 PAIN.
[2019-08-09 06:00] VITALS: BP 122/75
[2019-08-09 06:22] LABS: BASOPHIL % 0.1 % (0-2)
[2019-08-09 06:39] LABS: CALCIUM 8.1 mg/dL (8.5-10.1); CHLORIDE SERUM 105 mmol/L (98-107); CREATININE SERUM 0.7 mg/dL (0.7-1.3); GFR1 > 60 mL/min; GLUCOSE SERUM 130 mg/dL (74-106); MAGNESIUM 2.1 mg/dL (1.8-2.4); PHOSPHOROUS 3.4 mg/dL (2.5-4.9); POTASSIUM SERUM 3.6 mmol/L (3.5-5.1); SODIUM SERUM 139 mmol/L (136-145)
--- NOTE | 2019-08-09 06:40 | NUR ---
NO FURTHER SIGNIFICANT EVENTS THIS SHIFT. IV IS SALINE LOCKED AND PATENT. BAZAN DRAINING CLEAR YELLOW URINE. PATIENTS BACK PAIN HAS PERSISTED 10/10 THROUGH THE NIGHT DESPITE ROUND THE CLOCK PAIN MEDICATION. WILL ENDORSE CARE TO DAYSHIFT NURSE. BED LOCKED AND IN LOWEST POSITION. CALL LIGHT WITHIN REACH.
[2019-08-09 07:49] LABS: PLATELET COUNT 522 x10^3mcL (130-400); RED CELL DISTRIBUTION WIDTH 15.1 % (11.5-14.5)
--- NOTE | 2019-08-09 07:50 | NUR ---
PATIENT COMPLAINS OF PAIN AND GAVE MORPHINE AT 800AM INDICATED. PATIENT LAST DOSING AT 300AM. PATIENT AHS DIMINISHED BREATH SOUNDS AND CHRONIC PAIN TO THE BACK AND LEGS AND HIPS. PATIENT HAS DRY CALLOUS TO XIAO FEET AND A SCABBED AREAS THAT IS DRY AND A SCRAPE TO THE LOWER BACK AND BUTTOCKS. ALL ARE HEALING WELL. APTINET AHS BEEN OFFERD AND TOELRATE DIET AND FLUIDS. HE HAS BEEN IN ISOLATION FOR MRSA OF THE NARES AND CONTINUED ON THE PROTOCAL ORDERED. PATIENTA HD BEEN ON MERRIN AND VANCOMYCIN AND NO ADVERSE REACTION REPORTED. VITALS AT THIS TIME AT 99.4, 82, 20, 122/75, 97% ON ROOM AIR PATIENT HAS THE SET UP FOR SCDS BUT HAS NOT BEEN WEARING THEM. HE HAS NOTED LABS OF H AND H OF 10.0/31, PLT COUNT AT 522, AND GLUCOSE WAS AT 130, CA AT 8.1,CREATININE AT 0.6 AND HAS BEEN WITHLFA IV TO HEPLOCK AND REMAINS INTACT. HE NOTED WITH HX OF HTN, CAD, CHRONIC BACK PAIN, RIGHT HIP FRACTURE.
[2019-08-09 09:15] VITALS: BP 140/79
--- NOTE | 2019-08-09 10:20 | NUR ---
WANTS IV PAIN MEDICATION MORPHINE BUT TOO SOON AND OFFERED AND GAVE NORCO. PATIETN IS MOANING ON AND OFF AND INBETWEEN SLEEPING DEEPLY. PATIENT HAS BEEN ABLETO TOLERATE THE DIET AND IS SLEEPING IN A POSITION MOST COMFORTABLE FOR HIM. WILL CONTINUE TO MONITOR.
--- NOTE | 2019-08-09 12:09 | NUR ---
1. [facility] at [facility].
--- NOTE | 2019-08-09 12:09 | NUR ---
Initial Nutrition Assessment: 210/B GREGORIA DANIELS MR Dx: R lower lobe PNA PMHx: HTN, CAD and Chronic Back Pain PSHx: not documented Labs: BG 130H, CA 8.1L, ALB 1.7L, HGB 10.0L Meds: Colace, morphine, norco, vancomycin Diet: CCHO PO Intake: (08/08) Lunch, breakfast 100%, (08/07) 100% all meals Ht: 180.34 cm (71") Wt: 68.2 kg (150#) BMI: 21 kg/m2 Bed scale: unable to access as pt was very agitated and wanted me to leave IBW: 172# (78 kg) %IBW: 87 UBW: unable to access Age: 59/M Food Allergies: NKFA Skin: dry skin and scabs to BLE [place]: 17 Edema: none GI: Last BM: 08/08 Per H&P, Pt is a 59yo male with PMH of HTN, CAD and Chronic Back Pain who was brought to the ER by [facility] from [facility] with reported fever and ALOC. RDN Visit (08/09): Patient was agitated, was shouting and was not ready to have any sort of communication at this time. Spoke with ARTHUR Jara, she said that patient has good PO and has not complained of nay N/V/D/C at this time. Patient keeps complaining of chronic back and hip pain. Per progress note (08/09), ID CONSULT: Continue the antibiotic therapy. Transfer to higher level of care RUPESH. Problem with: N/V/D/C: none at this time per ARTHUR Jara Problems with: Chewing/Swallowing: none Current appetite: good Recent wt change: unable to access %wt change: n/a Vitamin/Supplement use: unable to access Special diet at home: unable to access Physical activity: unable to access Nutrition education given: not appropriate at this time. Food-drug interactions: Colace- high fiber w/3681-6301 ml fluids Education given: no Estimated Nutritional Needs Based on current body weight 68.2 kg Energy: 4052-2345 kcal/d (25-30 kcal/kg) Protein: 68.2-82 g/d (1.0-1.2 g/kg) - preserve LBM Fluid: 3665-3697 ml/d (1 ml/kcal) or per doctor Nutrition Diagnosis 1. Altered nutrition related lab values related to medical condition as evidenced by BG 130H, HGB 10.1L. Intervention 1. Recommend continuing [facility] diet at this time. Monitor/Evaluate Goal: PO intake at least 75% of estimated needs Monitor: PO intake, Labs, GI function F/U in 7 days as low risk 08/16
--- NOTE | 2019-08-09 13:34 | NUR ---
GAVE MORPINE FOR PAIN AND WILL MONITOR FOR EFFECTIVENESS. TRENA HAS BEEN ANXIOUS AND AGITATED AT TIMES.
--- NOTE | 2019-08-09 14:36 | NUR ---
PATIENT ASKING FREQUENTLY ABOUT THE TIME THE MORPHINE WAS GIVEN. SE RECIEVED AT 1246 AND HE IS NOT DUE AGAIN TILL 1546. PATIENT IS VERY ANXIOUS ABOUT THIS AND DOES NOT SEEMT O WANT ANYTHING BUT THE MORPHINE. PATIENT HAS TOLERATED DIET AND FLUIDSD WELL. WILL CONTINUE TO MONITOR AND GIVE THE PAIN MEDICVATION ACCORDKIGN TO THE PARIMETERS SET.
--- NOTE | 2019-08-09 15:28 | NUR ---
GAVE PATIENT SOME MORPHINE AND REMINDED HIM THAT THE NEXT DOES IS NOT DUE TILL 1806. PATIENT HAS BEEN CONSTANTLY REQUESTING PAIN MEDICATION AND THE DOCTORS ARE NOT GOING TO RAISE THE MEDICATION HE HAS OPTIONS OF TORADOL AND NORCO WELL. WILL CONTINUE TO MONITOR.
[2019-08-09 16:36] VITALS: BP 113/66
--- NOTE | 2019-08-09 18:29 | NUR ---
GAVE MORPHINE INDICATED AND TWENTY MINUTES LATER THE PATIETN IS YELLING AND CURSING FOR PAIN MEDICATION AGAIN. PATIENT IS AWARE OF XIAO TIME AND THE TIME ALOT BETWEEN DOES. OFFERED NORCO AND TORADOL AND HE DOES NOT WANT EITHER OF THESE. PATIENT REMINDED AGAIN OF THIS.
--- NOTE | 2019-08-09 19:30 | NUR ---
RECEIVED REPORT FROM DAY SHIFT RN. PT RESTING IN BED WITH EYES CLOSED. AROUSABLE WITH VERBAL STIMULI. ORIENTED X4. NO SOB ON ROOM AIR. IV TO RIGHT WRIST, INTACT. LAC, HEPARIN INFUSING AT 2400 UNITS/HR. SAFETY MEASURES IN PLACE. BED IN LOWEST POSITION. SIDE RAILS UP X2. INSTRUCTED PT TO USE THE CALL LIGHT FOR ASSISTANCE. CALL LIGHT WITHIN REACH. SON AT BEDSIDE.
--- NOTE | 2019-08-09 19:45 | NUR ---
RECEIVED REPORT FROM DAY SHIFT RN. AA&O X4. NO SOB ON ROOM AIR. PT C/O BACK AND HIP SHARP PAIN 06/05 AND WANTS MORPHINE. EXPLAINED TO THE PT THAT MORPHINE IS NOT DUE YET. PT REFUSED OTHER PAIN MEDS. IV TO LFA, INTACT. BAZAN CATHETER IN PLACE DRAINING BY GRAVITY. SAFETY MEASURES IN PLACE. BED IN LOWEST POSITION. SIDE RAILS UP X2. CALL LIGHT WITHIN REACH.
[2019-08-09 20:43] VITALS: BP 150/90
--- NOTE | 2019-08-09 20:43 | NUR ---
MORPHINE GIVEN FOR BACK/HIP SHARP PAIN 09/05.
--- NOTE | 2019-08-09 22:09 | NUR ---
PT C/O BACK/HIP SHARP PAIN 09/05. EXPLAINED TO PT THAT MORPHINE IS NOT DUE YET. NORCO GIVEN.
--- NOTE | 2019-08-09 22:45 | NUR ---
PT ASKING FOR MORPHINE FOR BACK/HIP PAIN. INFORMED PT ABOUT THE TIME IT WAS LAST GIVEN AND THAT IT IS TOO EARLY TO GIVE IT AGAIN. PT YELLED "THAT IS NOT TRUE" AND GOT AGITATED. PT THREW THE PITCHER AGAINST THE WALL. CHARGE NURSE TALKED TO THE PT. AWARE.
[2019-08-09 23:48] VITALS: BP 138/84
--- NOTE | 2019-08-09 23:48 | NUR ---
MORPHINE GIVEN FOR BACK HIP PAIN 09/05. PT MORE CALM AND COOPERATIVE AT THIS TIME.
--- NOTE | 2019-08-10 03:06 | NUR ---
MORPHINE GIVEN FOR BACK/HIP PAIN 09/05.
[2019-08-10 05:49] VITALS: BP 137/80
[2019-08-10 05:53] LABS: BASOPHIL % 0.1 % (0-2)
--- NOTE | 2019-08-10 06:29 | NUR ---
PT RESING IN BED. NO SOB ON ROOM AIR. NO DISTRESS NOTED. BAZAN CARE DONE. SAFETY MEASURES MAINTAINED. ALL NEEDS ATTENDED TO. CALL LIGHT WITHIN REACH. WILL ENDORSE CONTINUITY OF CARE TO DAY SHIFT RN.
[2019-08-10 06:52] LABS: PLATELET COUNT 614 x10^3mcL (130-400); RED CELL DISTRIBUTION WIDTH 15.5 % (11.5-14.5)
[2019-08-10 07:26] LABS: CALCIUM 8.3 mg/dL (8.5-10.1); CARBON DIOXIDE 25.2 mmol/L (21-32); CHLORIDE SERUM 105 mmol/L (98-107); CREATININE SERUM 0.8 mg/dL (0.7-1.3); GFR1 > 60 mL/min; GLUCOSE SERUM 117 mg/dL (74-106); MAGNESIUM 1.9 mg/dL (1.8-2.4); PHOSPHOROUS 3.6 mg/dL (2.5-4.9); POTASSIUM SERUM 3.5 mmol/L (3.5-5.1); SODIUM SERUM 140 mmol/L (136-145)
[2019-08-10 08:36] VITALS: BP 132/81
--- NOTE | 2019-08-10 09:52 | NUR ---
PT HAD LARGE FORMED BM.
--- NOTE | 2019-08-10 14:11 | NUR ---
IN TO SEE PATIENT AND ASSESS NEEDS AFTER LUNCH. PT RESTING COMFORTABLY IN BED. NO NEEDS IDENTIFIED.
--- NOTE | 2019-08-10 15:22 | NUR ---
IN TO SEE PATIENT AND ADMINISTER PAIN MEDICATION FOR PAIN 10 (SEE eMAR). EMPTIED BAZAN OF 1550 ML ASTRID URINE.
[2019-08-10 17:10] VITALS: BP 159/89
--- NOTE | 2019-08-10 19:44 | NUR ---
REPORT GIVEN TO LIBRADO GIBSON. PATIENT RESTING IN BED WITH ALL NEEDS MET. ALL QUESTIONS AND CONCERNS ADDRESSED. ALL CARES ENDORSED.
--- NOTE | 2019-08-10 20:07 | NUR ---
RECEIVED PATIENT IN BED AWAKE, ALERT AND ORIENTED WITH NO SIGN OF RESPIRATORY DISTRESS. BREATHING EASY AND NONLABOR SATTING AT 08% RA. MEDSURG PATIENT.IV TO LFA HEPLOCKED. WILL CONTINE TO MONITOR. CALL LIGHT WITHIN REACH.
--- NOTE | 2019-08-10 21:16 | NUR ---
C/O BACKPAIN AT SCALE OF 8/10 PER PATIENT, MEDICATED WITH MORPHINE 2MG IVP PRESCRIBED. WILL CONTINUE TO MONITOR.
[2019-08-10 21:25] VITALS: BP 131/75
--- NOTE | 2019-08-10 22:51 | NUR ---
MILD RELIEF NOTED PER PATIENT AFTER PAIN MEDS WAS GIVEN.
--- NOTE | 2019-08-11 00:21 | NUR ---
STILL AWAKE C/O BACKPAIN AT SCALE OF 8/10, MORPHINF 2MG IVP GIVEN.
--- NOTE | 2019-08-11 00:41 | NUR ---
DR BLANCAS CAME IN WITH NEW ORDERS AND CARRIED OUT. PATIENT FOR BLOOD CULTURE AND ECHO IN AM.
--- NOTE | 2019-08-11 03:59 | NUR ---
MORPHINE 2MG IVP GIVEN FOR BACK AND HIP PAIN. WILL CONTINUE TO MONITOR.
--- NOTE | 2019-08-11 05:06 | NUR ---
AWAKE MOST OF THE TIME C/O BACKPAIN AND HIP PAIN X3 THE ENTIRE SHIFT AND MEDICATED PRESCRIBED. ALL NEEDS ATTENDED.
[2019-08-11 05:14] VITALS: BP 151/91
[2019-08-11 06:36] LABS: CALCIUM 8.6 mg/dL (8.5-10.1); CARBON DIOXIDE 25.2 mmol/L (21-32); CHLORIDE SERUM 102 mmol/L (98-107); CREATININE SERUM 0.7 mg/dL (0.7-1.3); GFR1 > 60 mL/min; GLUCOSE SERUM 127 mg/dL (74-106); MAGNESIUM 1.9 mg/dL (1.8-2.4); PHOSPHOROUS 3.3 mg/dL (2.5-4.9); SODIUM SERUM 136 mmol/L (136-145)
[2019-08-11 06:53] LABS: BASOPHIL % 0.3 % (0-2)
[2019-08-11 07:07] LABS: PLATELET COUNT 587 x10^3mcL (130-400); RED CELL DISTRIBUTION WIDTH 15.7 % (11.5-14.5)
--- NOTE | 2019-08-11 07:30 | NUR ---
RECEIVED PATIENT RESTING IN BED, LYING ON HIS RIGHT SIDE, C/O OF BACK PAIN 07/06. MEDICATED PATIENT WITH MORPHINE PER PROTOCOL (SEE EMAR).NO ACUTE RESPIRATORY DISTRESS NOTED, ON ROOM AIR. BAZAN CATH DRAINING TO GRAVITY. IV TO LFA SALINE LOCK, NO S/S OF INFILTRATION. CALL LIGHT WITHIN REACH, BED IN LOW POSITION, WILL CONTINUE TO MONITOR & MANAGE PAIN.
[2019-08-11 08:10] VITALS: BP 119/70
--- NOTE | 2019-08-11 09:50 | NUR ---
PATIENT WAS C/O CONTINOUS BACK PAIN 06/05, MEDICATED PATIENT WITH NORCO PER PROTOCOL (SEE EMAR). EDUCATED PATIENT ON PAIN MANAGEMENT, PATIENT VERBALIZED UNDERSTANDING. PATIENT WASHING UP IN BED AT THIS TIME. CALL LIGHT WITHIN REACH, BED IN LOW POSITION, WILL CONTINUE TO MONITOR.
--- NOTE | 2019-08-11 13:31 | NUR ---
PATIENT WAS C/O SEVERE BACK PAIN 08/06, MEDICATED PATIENT WITH MORPHINE PER PROTOCOL (SEE EMAR). REPOSITIONED PATIENT FOR COMFORT. CALL LIGHT WITHIN REACH, BED IN LOW POSITION, WILL CONTINUE TO MONITOR.
--- NOTE | 2019-08-11 16:34 | NUR ---
PATIENT C/O OF SEVER PAIN TO BACK, MEDICATED PATIENT WITH MORPHINE PER PROTOCOL (SEE EMAR). NO ACUTE SIDE EFFECTS NOTED. CALL LIGHT WITHIN REACH, WILL CONTINUE TO MONITOR.
[2019-08-11 17:00] VITALS: BP 134/80
--- NOTE | 2019-08-11 18:11 | NUR ---
PATIENT SITTING UP IN BED, EATING DINNER. NO ACUTE CHANGES NOTED THROUGH OUT SHIFT. DENIES PAIN. VANCO INFUSING TO LFA, IV SITE CDI & PATENT NO S/S OF INFILTRATION. CALL LIGHT WITHIN REACH, WILL ENDORSE REPORT TO NIGHT NURSE.
--- NOTE | 2019-08-11 19:10 | NUR ---
REPORT RECEIVED FROM DAY SHIFT RN. PATIENT WAS SEEN AND IS RESTING COMFORTABLY IN BED. NO DISTRESS NOTED. BREATHING EVEN AND UNLABORED ON ROOM AIR. NO SOB OR RESP DISTRESS NOTED. DENIES CHEST PAIN/PRESSURE. C/O / BACK PAIN. WILL MEDICATE. PATIENT IS AWARE THAT MED IS NOT DUE AT THIS TIME. IV TO THE LFA. PATENT AND INTACT. NO REDNESS OR SWELLING NOTED. BAZAN CATH IN PLACE DRAINING ASTRID URINE BY GRAVITY. COMFORT AND SAFETY MEASURES IN PLACE. BED IS LOCKED AND IN THE LOWEST POSITION. SIDE RAILS UP X2. CALL LIGHT IS WITHIN REACH. WILL CONTINUE TO MONITOR.
--- NOTE | 2019-08-11 19:41 | NUR ---
C/O 08/06 CHRONIC BACK PAIN. MEDICATED W/ PRN MORPHINE PRESCRIBED. EDUCATED PATIENT ON MEDICATION AND POSS SIDE EFFECTS. NO DISTRESS NOTED. BREATHING EVEN AND UNLABORED ON ROOM AIR. SAFETY MEASURES IN PLACE. CALL LIGHT WITHIN REACH. WILL CONTINUE TO MONITOR.
[2019-08-11 20:22] VITALS: BP 115/78
--- NOTE | 2019-08-11 21:18 | NUR ---
C/O 91/0 BACK PAIN. PRN NORCO ADMINISTERED PRESCRIBED. EDUCATION GIVEN ON MED AND POSS SIDE EFFECTS. VERBALIZED UNDERSTANDING. NO DISTRESS NOTED. SAFETY MEASURES IN PLACE. WILL CONTINUE TO MONITOR.
--- NOTE | 2019-08-11 21:50 | NUR ---
PATIENT IS CALM AT THIS TIME. RESTING IN BED. WATCHING TV. NO DISTRESS NOTED. BREATHING EVEN AND UNLABORED. SAFETY MEASURES IN PLACE. IVF INFUSING WELL. CALL LIGHT IS WITHIN REACH. WILL CONTINUE TO MONITOR.
--- NOTE | 2019-08-11 22:43 | NUR ---
C/O 9/10 BACK PAIN. PRN MORPHINE GIVEN PRESCRIBED. EDUCATION GIVEN. NO DISTRESS NOTED. BREATHING EVEN AND UNLABORED. NO SOB OR RESP DISTRESS NOTED. SAFETY MEASURES IN PLACE. CALL LIGHT IS WITHIN REACH. WILL CONTINUE TO MONITOR.
--- NOTE | 2019-08-11 22:59 | NUR ---
CHARGE NURSE, TOBI, SPOKE WITH DR OLIVAS ABOUT ABX MAXIPIME COURSE. SE SAID THEY'LL DISCUSS IT WITH THE DAY SHIFT DOCTORS.
--- NOTE | 2019-08-12 00:04 | NUR ---
RESTING IN BED WITH EYES CLOSED. NO DISTRESS NOTED. BREATHING EVEN AND UNLABORED ON ROOMS AIR. EVEN CHEST RISE AND FALL. NO S/S OF PAIN NOTED. SAFETY MEASURES IN PLACE. CALL LIGHT IS WITHIN REACH. WILL CONTINUE TO MONITOR.
--- NOTE | 2019-08-12 00:40 | NUR ---
CALLED C/O PAIN. INFORMED PATIENT THAT PAIN MEDS ARE NOT DUE AT THIS TIME. GAVE PATIENT A NEW BED SHEET AND PB&J PER REQUEST. ASKED PATIENT IF SCDS COULD BE APPLIED AND PATIENT STATED "NOT UNTIL I GET MY MORPHINE". EDUCATED PATIENT ON THE IMPORTANCE OF WEARING SCDS. PATIENT STILL DID NOT WANT THEM ON AT THIS TIME. NO DISTRESS NOTED. SAFETY MEASURES IN PLACE. WILL CONTINUE TO MONITOR.
--- NOTE | 2019-08-12 01:43 | NUR ---
C/O 08/06 SEVERE BACK PAIN/ MEDICATED WITH PRN MORPHINE PRESCRIBED. NO DISTRESS NOTED. SCD APPLIED ON BLE. BREATHING EVEN AND UNLABORED. SAFETY MEASURES IN PLACE. CALL LIGHT IS WITHIN REACH. WILL CONTINUE TO MONITOR.
--- NOTE | 2019-08-12 04:05 | NUR ---
CALLED YELLING FOR PAIN MEDS. INFORMED PATIENT THAT PRN MORPHINE IS NOT DUE YET. PATIENT WAS ANGRY, BUT WANTS NORCO. PRN NORCO WAS ADMINISTERED PRESCRIBED. NO DISTRESS NOTED. BREATHING EVEN AND UNLABORED ON ROOM AIR. GAVE ORANGE JUICE X2. SAFETY MEASURES IN PLACE. WILL CONTINUE TO MONITOR.
[2019-08-12 04:48] VITALS: BP 137/83
--- NOTE | 2019-08-12 05:10 | NUR ---
C/O 08/06 BACK PAIN. ADMINISTERED PRN MORPHINE PRESCRIBED. NO DISTRESS NOTED. ALSO GAVE PB&J AND MILK PER REQUEST. BREATHING EVEN AND UNLABORED. SAFETY MEASURES IN PLACE. CALL LIGHT WITHIN REACH. WILL CONTINUE TO MONITOR.
--- NOTE | 2019-08-12 05:30 | NUR ---
REFUSING LAB DRAW AT THIS TIME. TOLD VENEER TRIMMER TO COME BACK AT 8AM. WILL NOTIFIED DR OLIVAS
--- NOTE | 2019-08-12 06:33 | NUR ---
RESTED IN SHORT INTERVALS THROUGHOUT THE NIGHT. NO ACUTE CHANGES NOTED. BREATHING EVEN AND UNLABORED ON ROOM AIR. NO SOB OR RESP DISTRESS NOTED. C/O CHRONIC BACK PAIN THROUGHOUT THE NIGHT AND MEDICATED WITH PRN MORPHINE AND NORCO THROUGHOUT THE NIGHT. DENIES CHEST PAIN PRESSURE. BAZAN CATHETER WITH, NOW, YELLOW URINE DRAINING BY GRAVITY. IV TO THE LFA. PATENT AND INTACT. NO REDNESS OR SWELLING NOTED. GAVE FOOD THROUGHOUT THE NIGHT PER PATIETN REQUEST. SAFETY MEASURES IN PLACE. CALL LIGHT IS WITHIN REACH. WILL ENDORSE CARE TO DAY SHIFT RN.
--- NOTE | 2019-08-12 07:20 | NUR ---
RECEIVED PT FROM STREET CLEANER RN. Sierra/GENO. MED SURG. DENIES CHEST PAIN/PRESSURE. RESPIRATIONS EQUAL AND UNLABORED ON RA. DENIES SOB. PT UPSET. PT ASKING FOR PAIN MEDICATION. PT STATES PAIN IS TO HIS HIP AND BACK 08/06. PT INFORMED PAIN MEDICATION IS NOT DUE YET. IV PATENT AND INFUSING. NO REDNESS OR SWELLING NOTED. WILL CONTINUE TO MONITOR. CALL LIGHT IN REACH. BED IN LOWEST POSITION.
--- NOTE | 2019-08-12 08:26 | NUR ---
PT SITTING UP IN BED. NO ACUTE RESP DISTRESS NOTED ON RA. GIVEN PO MEDS. TOLERATED WELL. PT C/O PAIN 08/06 TO LEFT HIP AND BACK "FEELS LIKE SOMEONE IS STABBING ME". PT ASKING FOR MORPHINE. MORPHINE NOT AVAILABLE TO EMAR. PT UPSET AND YELLING. PAGED DR. ANDERSON, AWAITING CALL BACK. WILL CONTINUE TO MONITOR. CALL LIGHT IN REACH. BED IN LOWEST POSITION.
[2019-08-12 08:39] LABS: RED CELL DISTRIBUTION WIDTH 15.3 % (11.5-14.5)
[2019-08-12 08:41] LABS: PLATELET COUNT 537 x10^3mcL (130-400)
[2019-08-12 08:53] LABS: CALCIUM 8.4 mg/dL (8.5-10.1); CARBON DIOXIDE 26.7 mmol/L (21-32); CHLORIDE SERUM 102 mmol/L (98-107); CREATININE SERUM 0.7 mg/dL (0.7-1.3); GFR1 > 60 mL/min; GLUCOSE SERUM 125 mg/dL (74-106); MAGNESIUM 1.9 mg/dL (1.8-2.4); PHOSPHOROUS 2.9 mg/dL (2.5-4.9); POTASSIUM SERUM 3.9 mmol/L (3.5-5.1); SODIUM SERUM 135 mmol/L (136-145)
[2019-08-12 09:25] VITALS: BP 130/74
[2019-08-12 09:38] LABS: ATYPICAL LYMPH 0 %; BAND NEUTROPHIL 1 % (0-10); BASOPHIL 0 % (0-2); MONOCYTE 3 % (0-7); SEGMENTED NEUTROPHILS 86 % (37-75)
[2019-08-12 09:39] LABS: rbc morphology (normal/abnorm) ABNORMAL (NORMAL)
[2019-08-12 09:40] LABS: PLATELET MORPHOLOGY PLATELETS INCREASED
--- NOTE | 2019-08-12 09:57 | NUR ---
SPOKE WITH DAYANA JOSEPH AT [facility], STILL NO BEDS AVAILABLE, PER DAYANA JOSEPH WILL CALL BACK IN A FEW HOURS IF THERE ARE DISCHARGES.
--- NOTE | 2019-08-12 11:03 | NUR ---
PT SITTING UP IN BED. NO ACUTE RESP DISTRESS NOTED ON RA. PT C/O PAIN 9/ TO BACK AND HIP SHARP. MEDICATED PER EMAR. PT REQUESTING MILK AND WIPES. GIVEN. WILL CONTINUE TO MONITOR. CALL LIGHT IN REACH. BED IN LOWEST POSITION.
--- NOTE | 2019-08-12 14:13 | NUR ---
PT IN BED RESTING. PT ANGRY YELLING. PT ASKING FOR HIS PAIN MEDICATION. PT STATES PAIN TO BACK AND HIP IS 10/10 SHARP. MEDICATED PER EMAR. PT REFUSING HIS PO MEDS. PT STATES "I DO NOT NEED THE NEURONTIN" WILL CONTINUE TO MONITOR. CALL LIGHT IN REACH. BED IN LOWEST POSITION.
--- NOTE | 2019-08-12 14:52 | NUR ---
PHYSICAL THERAPY NOTE PATIENT REFUSED FOUR CONSECUTIVE PHYSICAL THEERAPY SCHADULED SESSIONS; D/C FROM PHYSICAL THERAPY 2/2 NONCOMPLIANCE.
--- NOTE | 2019-08-12 16:12 | NUR ---
NOTED CEFEPIME WAS NO LONGER AVAILABLE ON PT EMAR. PAGED DR. ANDERSON INFORMED HER ORDER WAS NOT RENEWED. PER DR. ANDERSON WILL RENEW ORDER.
[2019-08-12 16:22] VITALS: BP 144/79
--- NOTE | 2019-08-12 17:15 | NUR ---
PT SITTING UP IN BED. PT UPSET YELLING. PT SCREAMING FOR PAIN MEDICATION. MEDICATED PER EMAR. IV ANTIBIOTICS INFUSING ORDERED. NO REDNESS OR SWELLING NOTED. PT REFUSING GABAPENTIN. PT STATES "I DONT NEED THAT" US ORDER EDITOR AT BEDSIDE FOR ECHO. PT STATES "HE IS GONNA HAVE TO WAIT FOR MY MORPHINE TO KICK IN" ASKED PT HOW LONG HE HAS TO WAIT, PT STATES 45 MINUTES. PER US ORDER EDITOR WILL COME BACK AND DO ECHO TOMORROW MORNING. PT INFORMED AND AGREED. WILL CONTINUE TO MONITOR. CALL LIGHT IN REACH. BED IN LOWEST POSITION.
--- NOTE | 2019-08-12 17:33 | NUR ---
ECHO ATTEMPTED, PT REFUSED TEST. WILL TRY AGAIN TOMMOROW.
--- NOTE | 2019-08-12 19:13 | NUR ---
PT RECEIVED A/O X4, ABLE TO MAKE NEEDS KNOWN, [place]. MED-SURG, DENIES ANY CP/PRESSURE. PULSES PALPABLE, NO EDEMA PRESENT. BREATHING IS EVEN AND UNLABORED, NO RESP DISTRESS NOTED. ABD SOFT AND NONDISTENDED, DENIES ANY N/V. BAZAN CATH SECURED AND IN PLACE, DRAINING VIA GRAVITY, YELLOW URINE NOTED. GENERALIZED WEAKNESS. SCABS NOTED TO BLE, GREASE AND TALLOW PUMPER; SCRATCHES/SCABS NOTED TO LEFT BUTTOCK/SACRAL, GREASE AND TALLOW PUMPER. PT REPORTS 10/10 BACK AND HIP PAIN, PT STATES "WILL WAIT WHEN MORPHINE IS DUE." IV TO RH, PATENT AND INTACT, SITE WNL. NO ACUTE DISTRESS NOTED. BED IN LOWEST SETTING, SIDE RAILS UP X2, CALL LIGHT WITHIN REACH. WILL CONT TO MONITOR.
--- NOTE | 2019-08-12 20:19 | NUR ---
PT C/O 09/05 BACK AND HIP PAIN, PT REQUESTING MORPHINE. PRN MORPHINE IVP GIVEN ORDERED. APPLE JUICE GIVEN PER PT'S REQUEST. NO ACUTE DISTRESS NOTED. WILL CONT TO MONITOR.
[2019-08-12 20:29] VITALS: BP 134/71
--- NOTE | 2019-08-12 23:16 | NUR ---
PT C/O 10/10 BACK PAIN AND BACK PAIN, PT REQUESTING MORPHINE. PRN MORPHINE IVP GIVEN ORDERED. NO ACUTE DISTRESS NOTED. CALL LIGHT WITHIN REACH. WILL CONT TO MONITOR.
--- NOTE | 2019-08-13 02:15 | NUR ---
PT C/O 10/10 HIP AND BACK PAIN, PRN MORPHINE IVP GIVEN ORDERED. NO ACUTE DISTRESS NOTED. CALL LIGHT WITHIN REACH. WILL CONT TO MONITOR.
--- NOTE | 2019-08-13 04:16 | NUR ---
PT C/O 08/06 BACK AND HIP PAIN. PT REQUESTING MORPHINE, INSTRUCTED PT THAT PAIN MED IS NOT DUE AT THIS TIME. OFFERED PT ALTERNATIVE PAIN MEDS. PRN ROXICODONE GIVEN ORDERED PER EMAR. NO ACUTE DISTRESS NOTED. CALL LIGHT WITHIN REACH. WILL CONT TO MONITOR.
[2019-08-13 05:10] VITALS: BP 151/84
--- NOTE | 2019-08-13 05:43 | NUR ---
PT SLEPT AT INTERVALS THROUGHOUT THE EVENING. BREATHING IS EVEN AND UNLABORED, NO RESP DISTRESS NOTED. PT NOTED YELLING AND CURSING FOR PAIN MEDS. INSTRUCTED PT TO USE CALL LIGHT WHEN PT NEEDS HELP. PT C/O 09/05 HIP AND BACK PAIN, PRN MORPHINE IVP GIVEN ORDERED. NO ACUTE CHANGES ENCOUNTERED DURING SHIFT. ALL NEEDS MET AND ANTICIPATED. IV TO RFA, PATENT AND INTACT, SITE WNL. CALL LIGHT WITHIN REACH. WILL ENDORSE CARE TO AM NURSE.
[2019-08-13 07:12] LABS: CALCIUM 8.6 mg/dL (8.5-10.1); CARBON DIOXIDE 26.9 mmol/L (21-32); CHLORIDE SERUM 101 mmol/L (98-107); CREATININE SERUM 0.6 mg/dL (0.7-1.3); GFR1 > 60 mL/min; GLUCOSE SERUM 95 mg/dL (74-106); MAGNESIUM 2.1 mg/dL (1.8-2.4); PHOSPHOROUS 3.5 mg/dL (2.5-4.9); POTASSIUM SERUM 4.1 mmol/L (3.5-5.1); SODIUM SERUM 136 mmol/L (136-145)
[2019-08-13 07:22] LABS: BASOPHIL % 0.3 % (0-2)
--- NOTE | 2019-08-13 07:25 | NUR ---
RECEIVED PT FROM BRANDING MACHINE TENDER. PT AWAKE, ALERT. A/OX4. PT ON ROOM AIR WITH NO RESP DISTRESS NOTED. IV ACCESS RIGHT HAND CDI. PERIPHERAL PULSES PALPABLE, NO EDEMA NOTED. ACTIVE BS NOTED. PT REPORTS NO ISSUES WITH ELIMINATION. PT REPORTS PAIN 10/10 IN BACK. WILL MEDICATE PRN. PT NOTED TO HAVE GENERALIZED WEAKNESS. SAFETY MEASURES IN PLACE, BED LOW AND LOCKED. CALL LIGHT WITHIN REACH.
--- NOTE | 2019-08-13 07:28 | NUR ---
PT IN NO ACUTE DISTRESS. CONTINUITY OF CARE ENDORSED TO RUDY GIBSON.
--- NOTE | 2019-08-13 08:43 | NUR ---
PT COMPLAINING OF PAIN TO BACK 09/05. MORPHINE ADMINISTERED ORDERED PRN (SEE EMAR). DUE MEDS ADMINISTERED. PT REFUSES COLACE. WILL CONT TO MONITOR.
[2019-08-13 08:57] LABS: RED CELL DISTRIBUTION WIDTH 15.1 % (11.5-14.5)
[2019-08-13 09:17] VITALS: BP 119/69
--- NOTE | 2019-08-13 09:26 | NUR ---
PT ASLEEP AT THIS TIME. BREATHING EVEN AND UNLABORED WTIH RR 20. NO ACUTE DISTRESS OR DISCOMFORT NOTED.
[2019-08-13 09:48] LABS: PLATELET COUNT 529 x10^3mcL (130-400)
--- NOTE | 2019-08-13 10:39 | NUR ---
PT COMPLAINING OF PAIN 10/10 IN BACK. MORPHINE NOT DUE AT THIS TIME. PT ASKING FOR OXYCODONE. MED ADMINISTERED ORDERED PRN (SEE EMAR). WILL CONTINUE TO MONITOR.
--- NOTE | 2019-08-13 12:02 | NUR ---
PT COMPLAINING OF PAIN 10/10 IN BACK, ASKING FOR MORPHINE. MED ADMINISTERED ORDERED PRN (SEE EMAR). PT CALM AND COOPERATIVE AT THIS TIME.
--- NOTE | 2019-08-13 15:01 | NUR ---
PT COMPLAINING OF PAIN TO BACK 09/05, ASKING FOR MORPHINE BEFORE ECHOCARDIOGRAM. MED ADMINISTERED ORDERED PRN (SEE EMAR). ECHO AT BEDSIDE AT THIS TIME. PT BLOOD PRESSURE 119/66 HR 93.
--- NOTE | 2019-08-13 15:43 | NUR ---
PT REPORTS SOME RELIEF AFTER MORPHINE ADMINISTRATION. 08/06. WILL CONTINUE TO MONITOR. SAFETY MAINTAINED.
[2019-08-13 16:56] VITALS: BP 113/66
--- NOTE | 2019-08-13 18:48 | NUR ---
PT STABLE AT THIS TIME. ALL NEEDS MET THROUGHOUT SHIFT. WILL CONTINUE TO MONITOR AND ENDORSE CARE TO PERFORATOR LOADER.
--- NOTE | 2019-08-13 19:10 | NUR ---
RECEIVED REPORT DAYS SHIFT RN, ALL QUESTIONS AND CONCERNS ADDRESSED
--- NOTE | 2019-08-13 19:52 | NUR ---
PT IS IN ROM 210 BED B, RESTING IN LOW FOWLERS POSITION. PT IS A/O X4, SPEECH IS CLEAR AND FOLLOWS COMMANDS. CHEST RISE AND FALL EQUAL AND UNLABORED AND LS CLEAR BILATERAL. PT IS ON RA. IV-22G RT HAND, PATENT AND FLUSHING WELL. PT HAS FC IN PLACE, PATENT, SECURE, AND DRAINING TO GRAVITY. VS STABLE AT THIS TIME. NO SIGNS OR COMPLAINTS OF ACUTE DISTRESS. BED LEFT IN THE LOWEST POSITION AND CALL LIGHT LEFT WITHIN REACH.
--- NOTE | 2019-08-13 20:04 | NUR ---
[facility] CALLED, NO BED AT THIS TIME, [facility] WILL CALL BACK IN 4HR FOR UPDATE
[2019-08-13 21:00] VITALS: BP 136/78
[2019-08-14 06:07] VITALS: BP 132/80
[2019-08-14 06:27] LABS: BASOPHIL % 0.8 % (0-2)
[2019-08-14 06:45] LABS: CALCIUM 8.2 mg/dL (8.5-10.1); CARBON DIOXIDE 27.3 mmol/L (21-32); CHLORIDE SERUM 102 mmol/L (98-107); CREATININE SERUM 0.7 mg/dL (0.7-1.3); GFR1 > 60 mL/min; GLUCOSE SERUM 86 mg/dL (74-106); MAGNESIUM 1.9 mg/dL (1.8-2.4); PHOSPHOROUS 3.5 mg/dL (2.5-4.9); POTASSIUM SERUM 4.2 mmol/L (3.5-5.1); SODIUM SERUM 136 mmol/L (136-145)
[2019-08-14 06:50] LABS: PLATELET COUNT 466 x10^3mcL (130-400); RED CELL DISTRIBUTION WIDTH 15.5 % (11.5-14.5)
--- NOTE | 2019-08-14 07:10 | NUR ---
RECEIVED BEDSIDE REPORT FROM CATERING TRUCK OPERATOR NURSE AT THIS TIME. PATIENT RESTING COMFORTABLY IN BED. NO APPARENT DISTRESS OR DISCOMFORT NOTED. BREATHING EVEN AND UNLABORED. NO RESPIRATORY DISTRESS OR DISCOMFORT NOTED. PATIENT DENIES SHORTNESS OF BREATH. PATIENT DENIES CHEST PAIN/PRESSURE AT THIS TIME. IV PATENT AND INTACT. ALL QUESTIONS AND CONCERNS ADDRESSED. ALL NEEDS ATTENDED TO. WILL CONTINUE TO MONITOR
--- NOTE | 2019-08-14 08:58 | NUR ---
PATIENT C/O "10" BACK PAIN AT THIS TIME. PATIENT MEDICATED WITH MORPHINE IVP PRN. PATIENT TOLERATED MEDICATION WELL. NO APPARENT ADVERSE EFFECTS NOTED. ALL NEEDS ATTENDED TO. WILL CONTINUE TO MONITOR
[2019-08-14 09:14] VITALS: BP 129/78
--- NOTE | 2019-08-14 10:00 | NUR ---
ALL MORNING MEDICATIONS ADMINISTERED AT THIS TIME. PATIENT TOLERATED WELL. NO APPARENT ADVERSE EFFECTS NOTED. ALL NEEDS ATTENDED TO. WILL CONTINUE TO MONITOR
--- NOTE | 2019-08-14 10:31 | NUR ---
PATIENT C/O BACK PAIN AT THIS TIME. PATIENT MEDICATED WITH 5MG ROXICODONE AT THIS TIME. PATIENT TOLERATED WELL. NO APPARENT ADVERSE EFFECTS NOTED. ALL NEEDS ATTENDED TO. WILL CONTINUE TO MONITOR
--- NOTE | 2019-08-14 12:01 | NUR ---
PATIENT C/O BACK PAIN AT THIS TIME. PATIENT MEDICATED WITH MORPHINE IVP PRN. PATIENT TOLERATED MEDICATION WELL. NO APPARENT ADVERSE EFFECTS NOTED. ALL NEEDS ATTENDED TO. WILL CONTINUE TO MONITOR
[2019-08-14 17:24] VITALS: BP 140/82
--- NOTE | 2019-08-14 18:27 | NUR ---
PATIENT RESTING COMFORTABLY IN BED AT THIS TIME. NO APPARENT DISTRESS OR DISCOMFORT NOTED. IV PATENT AND INTACT. BAZAN CATHETER IN PLACE DRAINING TO GRAVITY. ALL QUESTIONS AND CONCERNS ADDRESSED. ALL NEEDS ATTENDED TO. SAFETY PRECAUTIONS MAINTAINED. WILL ENDORSE ALL CARE TO FOOD AND BEVERAGE DIRECTOR NURSE
--- NOTE | 2019-08-14 19:15 | NUR ---
RECEIVED PT IN BED AWAKE, ALERT,ORIENTED X4. NO SOB ON ROOM AIR. HE HAS NO C/O PAIN AT THIS TIME. W/ BAZAN CATH DRAINING YELLOW URINE. W/ HL TO RT HAND INTACT. CALL LIGHT W/IN REACH. PT ON CONTACT ISOLATION.
[2019-08-14 21:07] VITALS: BP 125/70
--- NOTE | 2019-08-14 21:12 | NUR ---
PT MEDICATED W/ MORPHINE SULFATE 3 MG IV FOR C/O BACK PAIN 09/05.
--- NOTE | 2019-08-14 23:14 | NUR ---
PT MEDICATED W/ ROXICODONE 5 MG PO FOR C/O BACK PAIN 09/05. PT'S LINEN CHANGED BY STERILE TECH AT THIS TIME.
--- NOTE | 2019-08-15 00:16 | NUR ---
PT MEDICATED W/ MORPHINE SULFATE 3 MG IV FOR C/O BACK PAIN 08/06.
--- NOTE | 2019-08-15 02:00 | NUR ---
PT REQUESTED FOR JELLO AND MILK .
--- NOTE | 2019-08-15 02:30 | NUR ---
PT REQUESTED FOR A SANDWICH. PT GIVEN EGG SANDWICH REQUESTED.
--- NOTE | 2019-08-15 03:12 | NUR ---
PT C/O BACK PAIN 09/05. MORPHINE SULFATE 3 MG IV GIVEN.
[2019-08-15 04:35] VITALS: BP 129/81
--- NOTE | 2019-08-15 05:21 | NUR ---
PT APPEARS TO BE SLEEPING COMFORTABLY AT THIS TIME. HE CONTINUES TO C/O BACK PAIN AND WAS MEDICATED ORDERED. HE IS ABLE TO TURN FROM SIDE TO SIDE IN BED . BAZAN CATH REMAINS INTACT AND PATENT. NO BM NOTED. IV SITE TO RTFA W/ NO S/S OF INFILTRATION. ALL NEEDS ATTENDED TO. CONTACT ISOLATION MAINTAINED.
--- NOTE | 2019-08-15 05:31 | NUR ---
PT C/O BACK PAIN 09/05. ROXICODONE 5 MG PO GIVEN.
--- NOTE | 2019-08-15 06:11 | NUR ---
PT VERY DEMANDING OF PAIN MEDS AND WANTS MORPHINE SULFATE ALTHOUGH HE STATED THAT ROXICODONE HELPED W/ HIS PAIN THIS TIME. PT MEDICATED W/ MORPHINE SULFATE 3 MG IV.
[2019-08-15 06:31] LABS: BASOPHIL % 0.4 % (0-2)
[2019-08-15 06:51] LABS: CALCIUM 8.3 mg/dL (8.5-10.1); CARBON DIOXIDE 27.5 mmol/L (21-32); CHLORIDE SERUM 104 mmol/L (98-107); CREATININE SERUM 0.7 mg/dL (0.7-1.3); GFR1 > 60 mL/min; GLUCOSE SERUM 93 mg/dL (74-106); MAGNESIUM 1.8 mg/dL (1.8-2.4); PHOSPHOROUS 3.5 mg/dL (2.5-4.9); POTASSIUM SERUM 4.1 mmol/L (3.5-5.1); SODIUM SERUM 138 mmol/L (136-145)
--- NOTE | 2019-08-15 07:05 | NUR ---
RECIEVED PT RESTING IN BED WITH NO C/O DISTRESS OR SOB. PT REPORTS CONSTANT BACK PAIN, WILL CONTINUE PAIN MANAGEMENT. A/O X4 WITH NO RUFF OR DIZZINESS. DENIES CP OR PRESSURE. BAZAN CATHETER IN PLACE AND DRAINING YELLOW URINE. RIGHT WRIST IV INTACT AND PATENT WITH NO REDNESS OR INFLAMMATION NOTED. SAFETY PREACUTIONS IN PLACE, CALL LIGHT WITHIN REACH, WILL MONITOR.
[2019-08-15 07:14] LABS: PLATELET COUNT 522 x10^3mcL (130-400); RED CELL DISTRIBUTION WIDTH 15.1 % (11.5-14.5)
[2019-08-15 08:47] VITALS: BP 136/83
--- NOTE | 2019-08-15 09:11 | NUR ---
MORPHINE GIVEN PER EMAR FOR C/O 08/06 BACK PAIN, WILL REASSESS.
[2019-08-15 09:13] VITALS: BP 136/83
--- NOTE | 2019-08-15 11:36 | NUR ---
OXYCODONE GIVEN PER EMAR FOR C/O 08/06 BACK PAIN, WILL REASSESS.
--- NOTE | 2019-08-15 12:29 | NUR ---
MORPHINE GIVEN FOR 9/10 BACK PAIN, WILL REASSESS ON EMAR.
--- NOTE | 2019-08-15 15:58 | NUR ---
MORPHINE GIVEN FOR 9/10 BACK PAIN PER EMAR, WILL REASSESS.
--- NOTE | 2019-08-15 16:00 | NUR ---
PT C/O GENERALIZED BODY ACHE 09/05; GIVEN MORPHINE 3MG IVP; PT REPOSITIONED FOR COMFORT AND CLEANED UP BY FIRE INVESTIGATION MANAGER. WILL ENDORSE TO ARTHUR WHITE.
--- NOTE | 2019-08-15 17:37 | NUR ---
MEDICATED WITH OXYCODONE PER EMAR FOR 9/10 BACK PAIN, WILL REASSESS.
--- NOTE | 2019-08-15 18:03 | NUR ---
PATIENT RESTING COMFORTABLY IN BED AT THIS TIME. NO C/O ANY DISTRESS OR DISCOMFORT NOTED. IV PATENT AND INTACT WITH NO REDNESS OR INFLAMMATION. BAZAN CATHETER IN PLACE AND DRAINING TO GRAVITY. ALL QUESTIONS AND CONCERNS ADDRESSED. ALL NEEDS ATTENDED TO. SAFETY PRECAUTIONS MAINTAINED. CALL LIGHT WITHIN REACH, WILL ENDORSE ALL CARE TO COUNTING MACHINE OPERATOR NURSE.
--- NOTE | 2019-08-15 19:00 | NUR ---
PATIENT ACCIDENTALLY PULLED ON IV AND CATHETER CAME OUT. STARTED NEW IV 22G ON RIGHT WRIST. NO SIGNS OF INFILTRATION, BLEEDING, OR DRAINING NOTED. SKIN INTACT.
[2019-08-15 20:55] VITALS: BP 133/78
--- NOTE | 2019-08-15 22:27 | NUR ---
Received pt. complaining of pain, but day shift at bed side medicating pt. Pt. a/o x4, able to make needs known, and is known to be agitated with staff. Pt. is med surg, being admitted d/t R lower lobe PNA. Pt. hard of hearing at times, repeating what was said can be necessary.Pt. shows no signs of SOB, O2 Sat @ 97% on RA, showing no signs of distress also Pt. reports last bowel movement either yesterday or 2 days prior, has a doll catheter, in tact, draining deepa colored, clear urine, no signs of dysuria, pain, or bleeding. Pt. has generalized weakness but is able to reposition self in bed. Pt. has an abcess, but is internal, dry skin and scabs noted on BLE. Pt. has a new line put in on his right wrist, with NS running TKO, and is iv ab(x). Pt. call light placed within, bed at lowest position, will continue to monitor.
--- NOTE | 2019-08-16 01:10 | NUR ---
Pt. pressed call light and complained of pain. Pt. assessed, pt stated he was in 10/10 of 0-10 pain scale. Administered 3mg of Morphine as ordered PRN. Will continue to monitor and reassess.
--- NOTE | 2019-08-16 03:13 | NUR ---
Pt. c/o of moderate back pain, medicated with oxycodone 5mg. pt. also req for pbj harsh, gave pt. jack house.
[2019-08-16 06:01] VITALS: BP 134/81
--- NOTE | 2019-08-16 06:16 | NUR ---
Pt. refused blood to be drawn this morning. Will only consent to it once pain medicine has been given. senior technical editor notified, will return after 0730 AM.
--- NOTE | 2019-08-16 06:17 | NUR ---
Pharmacy called this morning regarding Vanco Trough. No Vanco trough has been drawn since 08/04/2019. Pharmacy gave instructions to give 6AM dose this AM d/t elevated WBC. Vanco trough will be drawn before next dose at 1800 as per pharmacy. Will endorse to next shift and continue to monitor.
--- NOTE | 2019-08-16 06:19 | NUR ---
Pt. was educated on Vancomycin. Pt. said he would refuse if medicine was going to burn his IV line. Pt. educated on safety and use of call light and to call if medicine indeed did burn. Pt. asked why he was getting the medicine. Educated pt. that upon his admission to [facility], [place] staff did a CXR, and found infiltrates in his RLL and this was the reason vancomycin was being prescribed. Pt. verbalized understanding and stated "they try and find random shit just to give me meds." Will continue to monitor.
--- NOTE | 2019-08-16 06:23 | NUR ---
Pt. is resting in bed the moment. Needs have been anticipated and met throughout the night. Pt. shows no signs of distress, pain, or discomfort at the moment. Pt. currently in bed watching TV, refused blood drawn, but will consent once pain medicine is given at 7. Pt. educated that the timing will be around shift change, and that proper timing will be done at best. Pt. verbazlized understanding. Vanco was given in the AM at 6, pharmacy informed that no Vanco Trough has been done since 08/04/2019 and was instructed to give morning dose d/t continued slightly elevated WBC. Vanco trough will be drawn before next dose at 1800. Call light placed within reach, bed set at lowest position, and will continue to monitor pt.
--- NOTE | 2019-08-16 06:56 | NUR ---
Pt. complained of 10/10 pain. Medicated w/ Morphine 3mg as ordered PRN q3h for severe pain. Will continue to monitor.
--- NOTE | 2019-08-16 07:15 | NUR ---
RECEIVED HAND OFF REPORT FROM NIGHT NURSE. PATIENT FOUND LAYING SUPINE PROPPED UP ON RIGHT ELBOW. A/O X4 SLIGHTLY HARD OF HEARING. PATIENT EATING BREAKFAST AT THIS TIME. ASKED PATIENT IF HE WOULD LIKE TO SIT UP BUT PATIENT REFUSED. ASKING ABOUT HIS PAIN MEDICATION AND APPEARING AGITATED WITH STAFF. REPORT FROM NURSE IS THAT PATIENT BECOMES VERY ANGRY WITH STAFF IF HIS PAIN MEDICATION IS NOT GIVEN ON SCHEDULE. PATIENT HAS BAZAN PRESENT DRAINING ASTRID COLORED, CLEAR URINE. IV TO RIGHT WRIST WITH VANCO INFUSING WITH NS AT A TKO RATE OF 5. ORRIENTED PATIENT TO CALL LIGHT SYSTEM AND PATIENT AWARE OF USE. WILL CONTINUE TO MONITOR
[2019-08-16 08:02] VITALS: BP 129/90
--- NOTE | 2019-08-16 08:17 | NUR ---
PATIENT COMPLAINING OF BACK PAIN, CHRONIC PAIN NOW 10/10 DEMANDING HIS PAIN MEDICATION THAT IS DUE. ADMINISTERED MEDICATION PER MAR. STARTED INFUSING OF ANTIBIOTIC. WILL REASSESS PAIN. PATIENT REFUSING ANY ADDITIONAL COMFORT MEASURES TO CONTROL PAIN. CALL LIGHT WITHIN REACH
[2019-08-16 08:35] LABS: BASOPHIL % 0.3 % (0-2)
[2019-08-16 08:38] LABS: PLATELET COUNT 463 x10^3mcL (130-400); RED CELL DISTRIBUTION WIDTH 15.2 % (11.5-14.5)
[2019-08-16 08:54] LABS: CALCIUM 8.4 mg/dL (8.5-10.1); CARBON DIOXIDE 27.9 mmol/L (21-32); CHLORIDE SERUM 102 mmol/L (98-107); CREATININE SERUM 0.7 mg/dL (0.7-1.3); GFR1 > 60 mL/min; GLUCOSE SERUM 122 mg/dL (74-106); MAGNESIUM 1.6 mg/dL (1.8-2.4); PHOSPHOROUS 3.4 mg/dL (2.5-4.9); POTASSIUM SERUM 3.8 mmol/L (3.5-5.1); SODIUM SERUM 137 mmol/L (136-145)
--- NOTE | 2019-08-16 10:17 | NUR ---
PATIENT COMPLAINING OF 10/10 BACK PAIN, VITAL SIGNS STABLE, ADMINSITERED MORPHINE PER JAN. DR OCHOA ON PATIENT. INFORMED PATIENT THAT HE HAS BEEN ACCEPTED AT [facility] AND JUST AWAITING A BED FOR TRANSPORT. CALL LIGHT WITHIN REACH OF PATIENT WILL CONTINUE TO MONITOR AND REASSESS PAIN
--- NOTE | 2019-08-16 11:21 | NUR ---
1. Recommend continuing regular diet with Ensure BID. Discussed recommendations with Dr. Dunog.
--- NOTE | 2019-08-16 11:21 | NUR ---
Follow-up Nutrition Assessment: 210/B GREGORIA DANIELS LR Dx: R lower lobe PNA PMHx: HTN, CAD and Chronic Back Pain Labs: (08/15) CA 8.3L, WBC 12.7H, HGB 10.6L, BUN 19H Meds: Colace, morphine, vancomycin Diet: Regular PO Intake: (08/15) 100% all meals, (08/14) breakfast 100% Weights: (08/09) 68.2 kg, (08/16) 62 kg Skin: dry skin scabs to BLE [place]: 14 I/Os: (08/15) 3050/3150 (-100) Edema: none GI: Last BM: 08/14 RDN Visit (08/16): Patient was alert and oriented and said that he ate ~ 90% of his meal this morning. Patient denies any N/V/D/C at this time and was requesting for ONS Ensure. Per progress note (08/16), ID consulted and was recommended to tranfer for higher level of care. SW on the process now and pending on the transfer. Patient has back and hip pain and being treated with pain killers and Vancomycin, cefipime. ID CONSULT: 1. Shall follow on the results of blood cultures, currently pending. 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 The patient will need drainage of iliopsoas abscesses Estimated Nutritional Needs Based on current body weight 68.2 kg Energy: 2705-4481 kcal/d (25-30 kcal/kg) Protein: 68.2-82 g/d (1.0-1.2 g/kg) - preserve LBM Fluid: 3013-2326 ml/d (1 ml/kcal) or per doctor Nutrition Diagnosis 1. Increased nutrient needs related to inflammation as evidenced by WBC: 12.7 Intervention 1. Recommend continuing regular diet with Ensure BID. Discussed recommendations with Dr. Duong. . Monitor/Evaluate Goal: Have pt meet at least 75% of estimated needs Monitor: PO intake, Labs, GI function F/U in 7 days as low risk 08/23
[2019-08-16 11:54] VITALS: BP 125/82
--- NOTE | 2019-08-16 12:49 | NUR ---
PATIENT COMPLAINING OF 10/10 PAIN TO HIS BACK. ADMINSITERED MORPHINE PER JAN. VITALS STABLE BEFORE ADMINISTRATION. WILL REASSESS PAIN. CALL LIGHT WITHIN REACH
--- NOTE | 2019-08-16 15:25 | NUR ---
PATIENT COMPLAINING OF 10/10 SHARP, STABBING PAIN TO BACK, PATIENT REFUSED COMFORT MEASURES, ADMINISTERED MEDICATION PER MAR. WILL REASSESS. UPDATED PATIENT THAT WE HAVE NOT HEARD BACK FROM [facility] BED AVAILABILITY. CALL LIGHT WITHIN REACH
--- NOTE | 2019-08-16 16:06 | NUR ---
CALLED REPORT TO OSVALDO GIBSON AT [facility]. PATIENT WILL BE TAKEN TO ROOM 5208, ACCEPTING DR. MARY ANN HELTON. [facility] SCHEDULED FOR CASTING MACHINE ADJUSTER WITH BLS UNIT AT 1700. ANSWERED QUESTIONS FROM NURSE.
[2019-08-16 16:07] VITALS: BP 132/62
--- NOTE | 2019-08-16 17:26 | NUR ---
GAVE PATIENT EDUCATION ABOUT DISCHARGE. PATIENT IS TO BE TRANSFERED TO A HIGHER LEVEL OF CARE FOR NEUROSURCIIGAL INTERVENTION, DESTINATION IS [facility]. PATIENT IS AWARE AND CONSENTS TO THE TRANSFER. [facility] SCHEDULED BLS AGENCY SALES REPRESENTATIVE IS AT 1700. PROVIDED PATIENT WITH TEACHING ABOUT CONDITION AND MADE AWARE OF APPOINTMENT ON 08/27/10 FOR A FOLLOW UP APPOINTMENT. PATIENT HAD NO FURTHER QUESTIONS AT THIS TIME. AWAITING [facility] BLS FOR TRANSPORT
--- NOTE | 2019-08-16 18:15 | NUR ---
CALLED [facility] AND WAS INFORMED THAT BLS CREW IS STILL ENROUTE TO [place] FOR [place] TRANSPORTATION TECHNICIAN, DELAYED DUE TO DISTANCE. SHOULD BE ARRIVING WITHIN 20 MINUTES.
--- NOTE | 2019-08-16 18:55 | NUR ---
[facility] UNIT [id number] HERE TO TRANSPORT PATIENT TO [facility]. PATIENT COMPLAINING OF 10/10 BACK PAIN. RECEIVED ORDER FROM DR COSME FOR 1MG OF MORPHINE TO BE GIVEN TO THE PATIENT PRIOR TO TRANSPORT. ADMINISTERED MEDICATION AND PATIENT TO BE TRANSPORTED BY [facility]INT [facility] OFF UNIT.
== END 2019-08-16 19:08 | disposition short-term general hospital (02) | DRG 720 ==
LOC: ED 20:25 → EDBD 23:09 → MU 23:09
PROVIDERS: Emergency Medicine; Internal Medicine; ADMIT Internal Medicine
DX: A41.9 Sepsis, unspecified organism (principal); N17.0 Acute kidney failure with tubular necrosis; J69.0 Pneumonitis due to inhalation of food and vomit; G06.1 Intraspinal abscess and granuloma; G93.41 Metabolic encephalopathy; E83.51 Hypocalcemia; J44.1 Chronic obstructive pulmonary disease with (acute) exacerbation; M46.26 Osteomyelitis of vertebra, lumbar region; G89.29 Other chronic pain; I10 Essential (primary) hypertension; I25.10 Atherosclerotic heart disease of native coronary artery without angina pectoris; M46.46 Discitis, unspecified, lumbar region; G95.29 Other cord compression; K59.00 Constipation, unspecified; K74.60 Unspecified cirrhosis of liver; D64.9 Anemia, unspecified; E87.1 Hypo-osmolality and hyponatremia; Z87.891 Personal history of nicotine dependence; Z88.2 Allergy status to sulfonamides; Z98.1 Arthrodesis status; Z79.899 Other long term (current) drug therapy
CPT/HCPCS: 83880; 84439; 92526-GN; 92610-GN; 97530-GP; G0378; J0456; J0692; J0696; J1885; J2060; J2270; J2543; J3370; J7030; J7040; J7050; J7060; Q9967